=== PATIENT | female | born 1950 | race Caucasian/White ===

== ENCOUNTER 2018-04-03 05:38 | Observation (INO) ==
[2018-04-03] MEDS ORDERED: Ondansetron 4 MG/2 ML VIAL IVP ONE (05:56)
[2018-04-03] MEDS ORDERED: Aspirin 325 MG TABLET PO ONE (05:56)
--- NOTE | 2018-04-03 06:02 | Emergency Department Note ---
START Narrative - START START: 67-year-old female nonsmoking diabetic who arrives via private vehicle driven by her grandmother with complaint of palpitations. Patient states that she was lying in bed @04:45 when she had begun noticing these just prior to arrival. She does mention that she has had palpitations in the past, but these are more severe, and have lasted longer. She mentioned she has seen Dr. Pena for these in the past but has not seen him lately. Palpitations are accompanied with nausea. She does mention she passed a exercise stress test recently recommended by Dr. Pena. Additionally she does mention that she was seen at [facility] 2 weeks ago for a neck biopsy, but has not heard the results. She denies any history of PE, DVT, [place]. She denies any near syncopal symptoms, syncope, chest pain, shortness of breath, cough, thyroid disease, or recent illness. This is a start note. I have reviewed nursing notes and vital signs. I have ordered initial workup. Due to shift change care of this patient be transferred over to day shift provider William Palacios CNP and daytime attending. Please see their further documentation for additional details, and further evaluation and disposition of this patient.
[2018-04-03 06:17] LABS: Basophils # 0.1 K/mcL (0.0-0.2); Basophils % 0.7 %; Eosinophils # 0.2 K/mcL (0.0-0.6); Eosinophils % 2.5 %; Hematocrit 43.7 % (35.3-44.9); Hemoglobin 14.6 g/dL (11.5-15.4); Immature Granulocytes % 0.7 % (0-4); Lymphocytes # 2.2 K/mcL (0.6-4.6); Lymphocytes % 28.5 %; Mean Corpuscular HGB Conc 33.4 g/dL (31.6-35.5); Mean Corpuscular Hemoglobin 30.3 pg (28.0-33.3); Mean Corpuscular Volume 90.7 fL (83.0-100.0); Mean Platelet Volume 11.9 fL (9.4-12.4); Monocytes # 0.8 K/mcL (0.0-1.3); Monocytes % 10.7 %; Neutrophils # 4.4 K/mcL (1.6-8.9); Platelet Count 188 K/mcL (140-400); Red Blood Count 4.82 M/mcL (3.82-4.97); Segmented Neutrophils % 56.9 %
[2018-04-03 06:26] LABS: Prothrombin Time 11.3 Seconds (9.4-12.1)
[2018-04-03 06:29] LABS: Activated Partial Thrombo Time 33.1 Seconds (26.0-36.0)
[2018-04-03 06:37] LABS: BUN/Creatinine Ratio 22 (6-26); Blood Urea Nitrogen 18 mg/dL (8-23); Calcium 9.5 mg/dL (8.6-10.3); Carbon Dioxide 24 mEq/L (23-29); Chloride 105 mEq/L (98-107); Glucose 168 mg/dL (70-105); Osmolality,Calculated 290 (280-300); Sodium 137 mEq/L (136-145); eGFR For Non-African Americans > 60 (> 60)
[2018-04-03 06:38] LABS: Troponin I < 0.03 ng/mL (< 0.04)
[2018-04-03 06:52] LABS: Thyroid Stimulating Hormone 3.767 mcIU/mL (0.340-5.600)
--- NOTE | 2018-04-03 07:07 | Emergency Department Note ---
Disposition Clinical Impression: Tachycardia Atrial flutter Qualifiers: Atrial flutter type: unspecified Qualified Code(s): I48.92 - Unspecified atrial flutter Disposition: Admitted As Inpatient Condition: Fair Arrhythmia/Palpitations HPI - General Chief Complaint: ED Arrhythmia/Palpitations Stated Complaint: Palpitations, SOB Time Seen by Provider: 04/03/18 05:49 Source: patient Mode of arrival: ambulatory Limitations: no limitations Nursing Notes Reviewed: Yes Vital Signs Reviewed: Yes - History of Present Illness HPI Narrative: 67 year old female with history of hypertension and diabetes presents with palpitation. Pt stated she woke up this morning around 4:30 am with palpitation. pt stated she felt uncomfortable feelings in chest. No pain. No shortness of breath. No sweating. No nausea and vomiting. Pt felt her pulse which was around 140s. She decided to come to ER for further evaluation. Pt had throat biopsy in [facility] two weeks ago. Per pt, it was negative biopsy. Pt had stress test before the biopsy. But she didn't get any results yet. Pt Subjective Complaint: rapid heart beat, palpitations Onset (ago): hour(s) (2) Duration: constant Severity: moderate Associated symptoms: Denies: chest pain, shortness of breath, near-syncope, nausea, vomiting, anxiety, diaphoresis - Related Data Home Medications Medication Instructions Recorded Confirmed Aspirin [Adult Aspirin] 81 mg PO DAILY 04/03/18 04/03/18 Cranberry 500 mg PO QAM 04/03/18 04/03/18 Metformin HCl [Metformin HCl] 1,000 mg PO BID 04/03/18 04/03/18 Metoprolol Tartrate [Metoprolol 50 mg PO BID 04/03/18 04/03/18 Tartrate] Allergies Allergy/AdvReac Type Severity Reaction Status Date / Time azithromycin Allergy See Verified 04/03/18 08:13 [From Zithromax Z-Jarett] Comments clarithromycin [From Biaxin] Allergy Nausea Verified 04/03/18 08:13 Penicillins Allergy See Verified 04/03/18 08:13 Comments tramadol Allergy See Verified 04/03/18 08:13 Comments Constitutional: Denies: fever, chills, weakness, weight change Eyes: Denies: eye pain, eye discharge, vision change ENT ED: Denies: ear pain, throat pain, dental pain, hearing loss, epistaxis, congestion, dysphagia Cardiovascular: Reports: palpitations. Denies: chest pain, dyspnea on exertion , edema, syncope Respiratory: Denies: cough, dyspnea, wheezes, hemoptysis, stridor Gastrointestinal: Denies: abdominal pain, nausea, vomiting, diarrhea, constipation, hematemesis, melena, hematochezia Genitourinary: Denies: dysuria, frequency, hematuria, discharge Musculoskeletal: Denies: back pain, neck pain, arthralgia, myalgia Integumentary: Denies: rash, abrasion, lesions Neurological: Denies: headache, weakness, numbness, paresthesias, confusion, abnormal gait, vertigo Psychiatric: Denies: anxiety, depression, suicidal thoughts, homicidal thoughts , auditory hallucinations, visual hallucinations Endocrine: Denies: fatigue Hematological/Lymphatic: Denies: easy bleeding, easy bruising Allergic/Immunologic: Denies: facial swelling, urticaria Past Medical History - Past Medical History Medical history: Reports: diabetes, other Psychiatric history: Reports: no psych history - Social History Smoking Status: Never smoker Smokeless Tobacco Status: No Alcohol use: Reports: none Drug use: Reports: none Physical Exam - General Limitations: no limitations General appearance: alert, in no apparent distress - Head Head exam: atraumatic, normocephalic, normal inspection - Eye Eye exam: Present: normal appearance, PERRL, EOMI - ENT ENT exam: normal exam, normal oropharynx, mucous membranes moist - Neck Neck exam: Present: normal inspection, full ROM, trachea midline - Chest Chest inspection: Present: normal inspection, symmetric chest wall rise. Absent : tenderness - Respiratory Respiratory exam: Present: normal lung sounds bilaterally. Absent: respiratory distress, wheezes - Cardiovascular Cardiovascular exam: Present: tachycardia, irregular rhythm - Abdominal Exam Abdominal exam: Present: soft, Non-Tender. Absent: tenderness, distention, guarding, rebound, rigidity - Extremities Exam Extremities exam: Present: normal inspection, full ROM, calf tenderness ( bilateral calfs tender). Absent: pedal edema - Expanded Lower Extremity Exam Neurovascular/Tendon exam: Absent: motor deficit, sensory deficit, tendon deficit - Back Exam Back exam: Present: normal inspection, full ROM. Absent: tenderness - Neurological Exam Neurological exam: Present: alert, oriented X3 - Psychiatric Psychiatric exam: Present: normal affect, normal mood - Skin Skin exam: Present: warm, dry, intact, normal color Course Vital Signs Temperature 98.0 F 04/03/18 05:42 Pulse Rate 100 04/03/18 05:42 Respiratory Rate 16 04/03/18 05:42 Blood Pressure 136/76 04/03/18 05:42 O2 Sat by Pulse Oximetry 97 04/03/18 05:42 Temperature 98.0 F 04/03/18 08:18 Pulse Rate 124 04/03/18 08:18 Respiratory Rate 20 04/03/18 09:30 Blood Pressure 146/83 04/03/18 09:30 O2 Sat by Pulse Oximetry 98 04/03/18 08:18 Oxygen Delivery Oxygen Delivery Room Air Arrhythmia/Palpitations - MDM Narrative Medical decision making narrative: 67 year old female with history of hypertension and diabetes presents with sudden onset palpitation. Pt had pulse around 140 at home. no chest pain. mild shortness of breath. Pt had unremarkable stress test two weeks ago for medical clearance for throat biopathy. Pt was on Metoprolol 50 mg twice a day. EKG in ER indicated a-flutter with HR 102, and 115 (twice). No ST-T change. Talked with Dr. Grajeda. Suggest to start Cardizem drip if no response to oral Metoprolol. 20 minutes after taking Metoprolol, pt's heart rate is between 100s to 140s. Negative troponin and d-dimer. Cardizem drip started. 10:20 am, 15 minutes after cardizem drip 5mg/hr, pt has no response to medication yet. heart rate was between 96 to 150s. Cardizem tiltered up. Talked with Hospitalist : Dr. Trivedi. pt will be admitted to Step down unit. - Differential Diagnosis Differential Diagnosis: Likely: palpitations, sinus tachycardia, artial arrhythmia - Lab Data Lab results reviewed: Yes I reviewed the patient's lab results. Result diagrams: 04/03/18 06:02 04/03/18 06:02 Lab Results 04/03/18 04/03/18 04/03/18 Range/Units 06:02 06:02 06:02 WBC 7.6 (4.3-11.1) K/mcL RBC 4.82 (3.82-4.97) M/mcL Hgb 14.6 (11.5-15.4) g/dL Hct 43.7 (35.3-44.9) % MCV 90.7 (83.0-100.0) fL MCH 30.3 (28.0-33.3) pg MCHC 33.4 (31.6-35.5) g/dL RDW 13.0 (11.5-14.5) % Plt Count 188 (140-400) K/mcL MPV 11.9 (9.4-12.4) fL Immature Gran % 0.7 (0-4) % Seg Neutrophils % 56.9 % Lymphocytes % 28.5 % Monocytes % 10.7 % Eosinophils % 2.5 % Basophils % 0.7 % Neutrophils # 4.4 (1.6-8.9) K/mcL Lymphocytes # 2.2 (0.6-4.6) K/mcL Monocytes # 0.8 (0.0-1.3) K/mcL Eosinophils # 0.2 (0.0-0.6) K/mcL Basophils # 0.1 (0.0-0.2) K/mcL PT 11.3 (9.4-12.1) Seconds INR 1.0 APTT 33.1 (26.0-36.0) Seconds D-Dimer 450 (0-500) ng/mLFEU Sodium 137 (136-145) mEq/L Potassium 4.0 (3.5-5.1) mEq/L Chloride 105 (98-107) mEq/L Carbon Dioxide 24 (23-29) mEq/L BUN 18 (8-23) mg/dL Creatinine 0.83 (0.60-1.20) mg/dL Est GFR ( Amer) > 60 (> 60) Est GFR (Non-Af Amer) > 60 (> 60) BUN/Creatinine Ratio 22 (6-26) Glucose 168 H (70-105) mg/dL Calculated Osmolality 290 (280-300) Calcium 9.5 (8.6-10.3) mg/dL Troponin I < 0.03 (< 0.04) ng/mL TSH 3.767 (0.340-5.600) mcIU/mL - Radiology Data Radiology results reviewed: Yes I reviewed the patient's radiology results. Attestation Statement - Attestation Attestation: This documentation is done with the assistance of Dragon dictation. Despite efforts made to ensure accuracy, there may be inaccuracies in household appliances service technician or spelling and typographical errors. I have personally performed a face to face evaluation on this patient. I have reviewed and agree with the care plan. History and Exam by me shows: Patient was seen and evaluated prior to my arrival by the physician's assistant program manager myself. I agree with her evaluation and management plan I supervised care the patient' s stay. She came in today due to palpitations and skipped heartbeats. She says she has had this before it sounds like it has been SVT in the past. She had a recent stress test. She is on a beta delicia twice a day but does not know the dose. She did not have discussed this morning. Staying in room speak with her heart rate is 9250. Waiting on labs come back repeating EKG and will speak with cardiology. She is in agreement with plan. Chest X-Ray 04/03/18 05:56 IMPRESSION: No acute findings. D/ / Robb Farrar / Robb Farrar Interpreting Provider: Robb Farrar [id number] hrs.: Patient is stable at this time just went ahead and repeated an EKG she has a tachycardic rhythm again with some skipped beats but better than before. We will speak with cardiology. She missed her morning dose of beta delicia which is metoprolol 50 mg twice a day we will give her first dose here and then follow cardiology's recommendations. Patient's in agreement with plan.
[2018-04-03] MEDS ORDERED: Naloxone 0.4 MG/ML INJ IVP PRN (10:42)
--- NOTE | 2018-04-03 10:50 | Internal Med History&Physical ---
Date of Encounter: 04/03/18 Time of Encounter: 10:47 Internal Medicine - H&P: HPI Chief complaint: Palpitations Admitted From: Home Plans for Post Hospital Care: Home History of present illness: Ms. Beltran is a 67 year old female with a past medical history of COPD nonsmoker and questionable obstructive sleep apnea as well as type 2 diabetes who presented with palpitations . Patient denies any chest pain and states that palpitations are first felt early this morning as she got up at the side of the bed. She denies feeling any dizziness or no chest pain. She did not have any nausea or vomiting associated with this. She has been dealing with palpitations for a long time over many years and her financial compliance examiner has put her on beta blockers. She takes 50 mg of by mouth twice a day metoprolol which does control her palpitation symptoms. The patient checked her pulse prior to coming to the hospital and said she was in the 130s to 140s. She recently had a throat biopsy of her tonsils at [facility] about couple of weeks ago. In the ER the patient was found to be in atrial fibrillation with rapid ventricular rate in the heart rate in the 130s. An EKG did confirm atrial fibrillation. She was given her 50 mg of metoprolol which is her home dose in addition to it Cardizem drip was started with titration and a call was made to the hospitalist for admitting the patient. Upon questioning her the patient does state that she is a nonsmoker but has been diagnosed by's pulmonary medicine at [facility] with the COPD based on lab pulmonary function tests and I have not yet confirmed this. She also has a diagnosis of sleep apnea -was diagnosed with sleep studies -but is very claustrophobic and does not wear her BiPAP. Past Med Surg Social Fam HX - Past Medical History Medical history: diabetes, other Additional medical history: palpitations Psychiatric history: no psych history - Past Surgical History Additional surgical history: bilat knee scopes - Social History Smoking Status: Never smoker Smokeless Tobacco Status: No Alcohol use: none Drug use: none - Additional Family History Additional family history: Denies any family history in her immediate family members of sudden adverse cardiovascular event Internal Medicine - H&P: Meds Aspirin [Adult Aspirin] 81 mg PO DAILY 04/03/18 [History] Cranberry 500 mg PO QAM 04/03/18 [History] Metformin HCl [Metformin HCl] 1,000 mg PO BID 04/03/18 [History] Metoprolol Tartrate [Metoprolol Tartrate] 50 mg PO BID 04/03/18 [History] 3 Allergy/AdvReac Type Severity Reaction Status Date / Time azithromycin Allergy See Verified 04/03/18 08:13 [From Zithromax Z-Jarett] Comments clarithromycin [From Biaxin] Allergy Nausea Verified 04/03/18 08:13 Penicillins Allergy See Verified 04/03/18 08:13 Comments tramadol Allergy See Verified 04/03/18 08:13 Comments All Systems PM: A 10-system review of systems was performed and is negative for pertinent findings except as documented above in the HPI. - Constitutional Vitals: Temp Pulse Resp BP Pulse Ox 98.0 F 124 20 146/83 98 04/03/18 08:18 04/03/18 08:18 04/03/18 09:30 04/03/18 09:30 04/03/18 08:18 Exam: GENERAL: Alert, no distress, cooperative EYES: PERRLA, EOMI EARS: External ears normal, canals clear OROPHARYNX: Lips, mucosa, and tongue normal. Teeth and gums normal. Oropharynx normal. NECK: No jugulovenous distention, No carotid bruits, Carotid pulse normal contour, Supple LUNGS: Lungs clear to auscultation, Good diaphragmatic excursion CARDIAC: Irregular heart rhythm, no murmurs rubs or gallops, tachycardia present. ABDOMEN: Abdomen soft, non-tender, BS normal, No masses or organomegaly EXTREMITIES: Extremities normal, no deformities, edema, clubbing or skin discoloration. Good capillary refill., No ulcers NEURO: Gait normal. Reflexes normal and symmetric. Sensation grossly intact, Cranial nerves II-XII intact PULSES: 2+ radial, 2+ carotid-irregular Rest of the exam is non contributory Internal Med - H&P Results - Labs CBC & Chem 7: 04/03/18 06:02 04/03/18 06:02 - Assessment and plan (1) Atrial fibrillation with rapid ventricular response Current Visit: Yes Status: Acute Assessment and plan: Patient has many years of palpitation history and today has evidence of atrial fibrillation on her EKG as well as telemetry monitoring. She was given her beta delicia which usually takes at 50 minutes twice a day. In addition she was also started on IV Cardizem drip which is to be titrated for heart rate response. Her chads risk score is at least 3 and she will need to be on anticoagulation which will be decided well on the floor. Cardiology has already been spoken to by the ER and I will be placing an official consult in the EMR. Check 2-D echo and follow cultures recommendations. For now we will manage her on the Cardizem drip which should be titrated depending on her heart rate control. She is also receiving 325 of aspirin I will be starting 81 mg of aspirin and starting tomorrow. Check TSH (2) Diabetes mellitus type 2 in obese Current Visit: Yes Status: Acute Assessment and plan: Sliding-scale insulin and Accu-Cheks before meals at bedtime. Hold oral hypoglycemics (3) Palpitations Current Visit: Yes Status: Acute Assessment and plan: Chronic issue. See atrial fibrillation and plan of care. - Time Spent With Patient Total time spent is greater than 50% in coordination of care (as documented) at patient's floor/unit and/or counseling patient: Greater than 35 minutes
[2018-04-03 11:51] LABS: Troponin I < 0.03 ng/mL (< 0.04)
[2018-04-03] MEDS ORDERED: 0.9 % Sodium Chloride 250 ML ONE (12:04)
[2018-04-03 12:07] LABS: Thyroid Stimulating Hormone 1.764 mcIU/mL (0.340-5.600)
[2018-04-03] MEDS: Aspirin Enteric Coated 81 MG Tablet PO SCH (12:26)
--- NOTE | 2018-04-03 12:59 | Cardiology Consult Note ---
<Christian Gaxiola R - Last Filed: 04/03/18 13:26> Date of Encounter: 04/03/18 Time of Encounter: 12:56 Assessment and Plan (1) Atrial fibrillation Current Visit: Yes Status: Acute Hx of atrial tachycardia and PACs. Woke this AM with palpitations, presented to ED and found to be in A-Fib RVR, new diagnosis. On Lopressor 50mg BID at home. Started on cardizem gtt, currently 7.5mg/hr with HR 70s-90s at bedside. Denies dyspnea or chest pain. Troponin negative. K and TSH WNL, check Mag. TTE 01/2018 EF preserved, moderate LVDD, mild valvular dysfunction. Per pt, had a stress test at [facility] last week--request records. [id number] 4 (Age, HTN, DM, Female). Would ideally recommend anticoagulation. However, had tonsil biopsy recently and was planned for needle lymph node biopsy at [facility] tomorrow--cancelled due to current admission. Anticipate we will recommend ASA only until her biopsies have been completed, then start AC after. Pt aware of increased CVA risk. Will start heparin gtt for inpt CVA prevention. Will start short acting cardizem 60mg Q8hrs and attempt to wean off gtt. If rate controlled in AM will transition to long acting cardizem. Has untreated BELEN--does not tolerate CPAP due to claustrophobia. Qualifiers: Atrial fibrillation type: unspecified Qualified Code(s): I48.91 - Unspecified atrial fibrillation Discussion w patient/family: The assessment and plan as outlined above was discussed with the patient and/or family members who expressed understanding and agreement. All questions were answered. Thank you for involving us in the care of your patient. Please call with any questions. I will discuss all the above with Dr. Grajeda and make changes as necessary. History of Present Illness Consult date: 04/03/18 Consult reason: A-Fib Chief complaint: palpitations History of present illness: Ms. Beltran is a 67 year old female with PMH of HTN, BELEN (unable to tolerate CPAP), PACs and atrial tachycardia. She presented to ED this AM for onset of palpitations. In ED, found to be in A-Fib RVR, HR in the 130s. She is on home Lopressor 50mg BID and started on a cardizem gtt. Cardiology consulted for further recs. HR at bedside 70s-90s on cardizem gtt at 7.5mg/hr. She was diagnosed with Strep throat in 10/2017. She recently had a throat biopsy of her tonsils at [facility] a couple of weeks ago due to a suspicious lesion. She tells me preliminary results are negative, but was planned to have a needle lymph node biopsy tomorrow at [facility], now cancelled due to this admission. She also reports having a stress test at the [facility] last week. Prior CV testing: TTE 02/02/18: LVEF 60-65%. Moderate left ventricular diastolic dysfunction. Normal right ventricular structure and function. Mild mitral regurgitation. Mild tricuspid regurgitation. Mild pulmonic regurgitation. No pulmonary hypertension by TR gradient. Exercise nuclear stress test 07/2014: Negative for ischemia or prior infarct. Holter monitor 11/21/2015: Occasional PACs averaging 16 per hour. 9 episodes of SVT, longest 15 beats. Morphology mostly suggestive of atrial tachycardia. Past Med Surg Social Fam HX - Past Medical History Medical history: COPD, diabetes, hypertension, other Additional medical history: palpitations. hard of hearing. Psychiatric history: no psych history - Past Surgical History Surgical History: cholecystectomy, hysterectomy Additional surgical history: bilat knee scopes. tonsil biopsy 2 weeks ago today - preliminary negative. - Social History Smoking Status: Never smoker Smokeless Tobacco Status: No Alcohol use: none Drug use: none - Family History Mother Hx Family Endocrine Disorder: Yes (mom, dad, brother, 3 sisters - diabetes.) Medications and Allergies Aspirin [Adult Aspirin] 81 mg PO DAILY 04/03/18 [History] Cranberry 500 mg PO QAM 04/03/18 [History] Metformin HCl [Metformin HCl] 1,000 mg PO BID 04/03/18 [History] Metoprolol Tartrate [Metoprolol Tartrate] 50 mg PO BID 04/03/18 [History] 3 Allergy/AdvReac Type Severity Reaction Status Date / Time azithromycin Allergy See Verified 04/03/18 08:13 [From Zithromax Z-Jarett] Comments clarithromycin [From Biaxin] Allergy Nausea Verified 04/03/18 08:13 Penicillins Allergy See Verified 04/03/18 08:13 Comments tramadol Allergy See Verified 04/03/18 08:13 Comments All Systems Review: The remainder of the systems were reviewed and are negative - Cardiovascular Cardiovascular: as per HPI, palpitations, rapid heart rate Physical Examination Vital Signs, Last 4 Hours Temp Pulse Resp BP Pulse Ox 04/03/18 12:30 81 151/95 04/03/18 12:10 90 94 04/03/18 12:00 76 133/82 04/03/18 11:30 98.7 F 87 18 140/89 95 04/03/18 11:1 5 88 130/72 04/03/18 10:55 20 146/83 04/03/18 10:48 93 20 129/80 97 General: Conversant, No Apparent Distress HEENT: Atraumatic, Normocephaly, Mucus Membranes Moist Neck: No JVD, Normal carotid pulses Cardiac: Other (irregularly irregular) Lungs: Normal Breath Sounds, No Wheeze, Rales, Rhonchi Neuro: Alert and responsive, No focal deficits noted Abdomen: Soft, Non-Tender Skin: No rashes noted on visualized skin Musculoskeletal: No Chest Wall Tenderness Extremities: No Clubbing, No Cyanosis, No Edema, Normal Pulses Results 04/03/18 06:02 04/03/18 06:02 Lab Results 04/03/18 11:04 Troponin I < 0.03 TSH 1.764 Short CBC 04/03/18 Range/Units 06:02 WBC 7.6 (4.3-11.1) K/mcL Hgb 14.6 (11.5-15.4) g/dL Hct 43.7 (35.3-44.9) % Plt Count 188 (140-400) K/mcL Neutrophils # 4.4 (1.6-8.9) K/mcL BMP 04/03/18 Range/Units 06:02 Sodium 137 (136-145) mEq/L Potassium 4.0 (3.5-5.1) mEq/L Chloride 105 (98-107) mEq/L Carbon Dioxide 24 (23-29) mEq/L BUN 18 (8-23) mg/dL Creatinine 0.83 (0.60-1.20) mg/dL Glucose 168 H (70-105) mg/dL Calcium 9.5 (8.6-10.3) mg/dL Cardiac Enzymes 04/03/18 04/03/18 Range/Units 11:04 06:02 Troponin I < 0.03 < 0.03 (< 0.04) ng/mL Impressions Chest X-Ray 04/03/18 05:56 IMPRESSION: No acute findings. D/ / Robb Farrar / Robb Farrar Interpreting Provider: Robb Farrar Active Medications Aspirin (Aspirin Ec) 81 mg PO DAILY ALAYNA Stop: 10/03/18 10:46 Last Admin: 04/03/18 12:26 Dose: Not Given Diltiazem HCl 50 mg/ Sodium (Chloride) 50 mls @ 5 mls/hr IVC .Q10H ALAYNA; 5 MG/HR PRN Reason: Protocol Stop: 10/03/18 09:01 Last Infusion: 04/03/18 10:17 Dose: 7.5 mg/hr, 7.5 mls/hr Metoprolol Tartrate (Lopressor) 50 mg PO BID ALAYNA Stop: 10/03/18 21:01 Naloxone HCl (Narcan) 0.4 mg IVP Q2MIN PRN PRN Reason: SEE COMMENTS Stop: 10/03/18 10:43 - Imaging and Cardiology Echo: report reviewed - EKG Interpretation EKG results cardiology: personally reviewed (A-Fib RVR) Consult Discharge Plan - Plan Referrals: Karla Mercer MD [Primary Care Provider] - (Office will call patient at home with follow up appointment per Dr. Mercer's office) <Dmitri Grajeda - Last Filed: 04/03/18 14:04> Date of Encounter: 04/03/18 - Attending Attestation I have personally performed a face to face evaluation on this patient. I have reviewed and agree with the care plan. History and Exam by me shows: CC: Palpitations HPI: Pt presents with complaint of palpitations awakening her from sleep, no associated chest pain, pressure or shortness of breath. Palpitations lasted over an hour, for which she sought care in the ER. She was found to be in A fib with uncontrolled rate response, started on IV diltiazem with control of heart rate response to A fib. She has recently undergone stress imaging as part of risk stratification for surgical biopsy of lesion on her tonsils. She denies chest pain, pressure or shortness of breath. PMH: Reviewed ROS: Reviewed PE: Pt seen and examined, agree with findings as documented. IMP/Plan 1; Afib with RVR, now rate controlled on IV diltiazem, change to short acting @ 60 mg q 8, then long acting in AM if ventricular rate response controlled. She is a candidate for systemic anticoagulation, however anticipating lymph node biopsy tomorrow, will hold until surgical procedures complete. 2. Throat lesion, reportedly negative biopsy, however planned needle biopsy lymph node at [facility] tomorrow, continue on ASA 81 mg 1 d only. 3. Benign PVCs, symptomatic, improved on current dose of Metoprolol, continue same 4. COPD : controlled on current meds 5. BEH: Adequate control on current meds, continue to follow on PO diltiazem. 6. Type 11 Adult onset DM, following with primary service IF able to control ventricular rate response, she is a candidate for discharge in AM to make scheduled appt for lymph node biopsy at [facility] in AM Assessment and Plan Discussion w patient/family: The assessment and plan as outlined above was discussed with the patient and/or family members who expressed understanding and agreement. All questions were answered. Thank you for involving us in the care of your patient. Please call with any questions. History of Present Illness History of present illness: Ms. Beltran is a 67 year old female All Systems Review: The remainder of the systems were reviewed and are negative Physical Examination Vital Signs, Last 4 Hours Temp Pulse Resp BP Pulse Ox 04/03/18 13:40 87 136/87 94 04/03/18 13:14 93 132/95 04/03/18 12:30 81 151/95 04/03/18 12:10 90 94 04/03/18 12:00 76 133/82 04/03/18 11:30 98.7 F 87 18 140/89 95 04/03/18 11:15 88 130/72 04/03/18 10:55 20 146/83 04/03/18 10:48 93 20 129/80 97 Results 04/03/18 06:02 04/03/18 06:02 Lab Results 04/03/18 11:04 Troponin I < 0.03 TSH 1.764
[2018-04-03] MEDS ORDERED: *HR* Heparin 5,000 UNIT/ML VIAL IVP PRN ×2 (13:19)
[2018-04-03] MEDS ORDERED: *HR* Heparin 5,000 UNIT/ML VIAL IVP ONE (13:19)
[2018-04-03] MEDS ORDERED: Heparin 25,000 UNIT/500 ML D5W 25,000 UNIT/500 ML BAG IVC SCH (13:30)
--- NOTE | 2018-04-03 16:12 | Electrocardiograph Report ---
[place] [id number] Test Date: 2018-04-03 Pat Name: Sania Beltran Department: Room: 2N15 Gender: F Ap Processor: : 1950 Requested By: Lance Peace Order Number: [id number] Reading MD: Fallon Xavier Measurements Intervals [place] Rate: 115 P: MO: QRS: -18 QRSD: 86 T: 18 QT: 339 QTc: 469 Interpretive Statements ATRIAL FIBRILLATION BORDERLINE LEFT AXIS DEVIATION Electronically Signed On 04-03-2018 16:10:35 EDT by Fallon Xavier
[2018-04-03] MEDS: *HR* Heparin 5,000 UNIT/ML VIAL SQ SCH (17:52)
[2018-04-04 04:58] LABS: Basophils % 0.5 %; Eosinophils # 0.2 K/mcL (0.0-0.6); Eosinophils % 2.3 %; Hematocrit 40.2 % (35.3-44.9); Hemoglobin 13.4 g/dL (11.5-15.4); Immature Granulocytes % 0.6 % (0-4); Lymphocytes # 2.3 K/mcL (0.6-4.6); Lymphocytes % 29.8 %; Mean Corpuscular HGB Conc 33.3 g/dL (31.6-35.5); Mean Corpuscular Hemoglobin 30.1 pg (28.0-33.3); Mean Corpuscular Volume 90.3 fL (83.0-100.0); Monocytes # 0.8 K/mcL (0.0-1.3); Monocytes % 9.8 %; Neutrophils # 4.4 K/mcL (1.6-8.9); Platelet Count 185 K/mcL (140-400); Red Blood Count 4.45 M/mcL (3.82-4.97); Red Cell Distribution Width 13.2 % (11.5-14.5)
[2018-04-04 05:18] LABS: BUN/Creatinine Ratio 20 (6-26); Blood Urea Nitrogen 16 mg/dL (8-23); Carbon Dioxide 23 mEq/L (23-29); Chloride 107 mEq/L (98-107); Glucose 178 mg/dL (70-105); Osmolality,Calculated 290 (280-300); Potassium 3.9 mEq/L (3.5-5.1); Sodium 137 mEq/L (136-145); eGFR For Non-African Americans > 60 (> 60)
[2018-04-04] MEDS: *HR* Heparin 5,000 UNIT/ML VIAL SQ SCH (06:34)
[2018-04-04] MEDS: Aspirin Enteric Coated 81 MG Tablet PO SCH (07:55)
--- NOTE | 2018-04-04 10:56 | Cardiology Progress Note ---
Date of Encounter: 04/04/18 Time of Encounter: 10:54 Assessment and Plan (1) Atrial fibrillation Current Visit: Yes Status: Acute Hx of atrial tachycardia and PACs. Presented yesterday in A-Fib RVR, new diagnosis. On Lopressor 50mg BID at home. Started on cardizem gtt on admission, converted to SR. Currently on Cardizem 30mg Q6hrs. Will transition to long acting cardizem cd 120mg daily. Denies dyspnea or chest pain. Troponin negative. K, Mag and TSH WNL. TTE 01/2018 EF preserved, moderate LVDD, mild valvular dysfunction. Per pt, had a stress test at [facility] last week--requested records. [id number] 4 (Age, HTN, DM, Female). Would ideally recommend anticoagulation. However, had tonsil biopsy recently and was planned for needle lymph node biopsy at [facility] today--cancelled due to current admission. Recommend ASA only until her biopsies have been completed, then start AC after. Pt aware of increased CVA risk. Continue Lopressor 50mg BID and Cardizem CD 120mg daily. Continue ASA. Cardiology signing off. Reconsult PRN. Will coordinate outpt follow-up in 2-[address] Lefty Winchester for new A-Fib diagnosis. Qualifiers: Atrial fibrillation type: unspecified Qualified Code(s): I48.91 - Unspecified atrial fibrillation Discussion w patient/family: The assessment and plan as outlined above was discussed with the patient and/or family members who expressed understanding and agreement. All questions were answered. Thank you for involving us in the care of your patient. Please call with any questions. I will discuss all the above with Dr. Grajeda and make changes as necessary. Subjective Principal diagnosis: PAF Interval history: Denies acute complaints currently. SR at bedside. 12 hr tele AVG HR 61, now SR. Objective Vital Signs, Last 4 Hours Temp Pulse Resp BP Pulse Ox 04/04/18 08:00 65 04/04/18 07:35 98.4 F 59 18 137/77 97 Vital Signs Temp Pulse Resp BP Pulse Ox 04/04/18 08:00 65 04/04/18 07:35 98.4 F 59 18 137/77 97 04/04/18 03:54 98.1 F 65 16 131/69 95 04/04/18 02:00 58 12 94 04/04/18 00:14 98.4 F 60 17 100/45 95 04/04/18 00:00 96 04/03/18 22:00 64 14 129/65 100 04/03/18 20:36 61 16 136/71 98 04/03/18 19:11 98.8 F 56 18 134/68 98 04/03/18 17:50 59 04/03/18 16:30 55 125/70 04/03/18 16:00 58 130/79 04/03/18 15:45 57 04/03/18 15:35 98.2 F 84 18 96 04/03/18 15:30 54 126/64 04/03/18 15:00 68 123/61 04/03/18 14:30 80 117/82 04/03/18 14:00 79 138/67 04/03/18 13:40 87 136/87 94 04/03/18 13:14 93 132/95 04/03/18 12:30 81 151/95 04/03/18 12:10 90 94 04/03/18 12:00 76 133/82 04/03/18 11:30 98.7 F 87 18 140/89 95 04/03/18 11:15 88 130/72 Intake and Output 04/03/18 04/04/18 04/04/18 23:59 07:59 15:59 Intake Total 860 / 860 250 / 250 360 / 360 Balance 860 / 860 250 / 250 360 / 360 Intake: Oral 860 / 860 250 / 250 360 / 360 Other: Meal Dinner Breakfast Percent of Meal Consumed 100% 100% # Voids 1 2 Weight 102.5 kg Blood Glucose* 194 186 Patient Weight 04/04/18 23:59 Weight 102.5 kg General: Conversant, No Apparent Distress HEENT: Atraumatic, Normocephaly, Mucus Membranes Moist Neck: No JVD, Normal carotid pulses Cardiac: Reg Rate and Rhythm, Normal S1 and S2, No Murmur Lungs: Normal Breath Sounds, No Wheeze, Rales, Rhonchi Neuro: Alert and responsive, No focal deficits noted Abdomen: Soft, Non-Tender Skin: No rashes noted on visualized skin Musculoskeletal: No Chest Wall Tenderness Extremities: No Clubbing, No Cyanosis, No Edema, Normal Pulses Results 04/04/18 04:16 04/04/18 04:16 Lab Results 04/03/18 04/03/18 04/03/18 11:04 17:32 22:48 WBC Hgb Hct Plt Count Sodium Potassium Chloride Carbon Dioxide BUN Creatinine Glucose Calcium Magnesium Troponin I < 0.03 < 0.03 < 0.03 TSH 1.764 04/04/18 04/04/18 04/04/18 04:16 04:16 04:16 WBC 7.7 Hgb 13.4 Hct 40.2 Plt Count 185 Sodium 137 Potassium 3.9 Chloride 107 Carbon Dioxide 23 BUN 16 Creatinine 0.80 Glucose 178 H Calcium 9.0 Magnesium 2.0 Troponin I TSH Short CBC 04/04/18 Range/Units 04:16 WBC 7.7 (4.3-11.1) K/mcL Hgb 13.4 (11.5-15.4) g/dL Hct 40.2 (35.3-44.9) % Plt Count 185 (140-400) K/mcL Neutrophils # 4.4 (1.6-8.9) K/mcL BMP 04/04/18 Range/Units 04:16 Sodium 137 (136-145) mEq/L Potassium 3.9 (3.5-5.1) mEq/L Chloride 107 (98-107) mEq/L Carbon Dioxide 23 (23-29) mEq/L BUN 16 (8-23) mg/dL Creatinine 0.80 (0.60-1.20) mg/dL Glucose 178 H (70-105) mg/dL Calcium 9.0 (8.6-10.3) mg/dL Cardiac Enzymes 04/03/18 04/03/18 04/03/18 Range/Units 22:48 17:32 11:04 Troponin I < 0.03 < 0.03 < 0.03 (< 0.04) ng/mL Active Medications Aspirin (Aspirin Ec) 81 mg PO DAILY [facility] Stop: 10/03/18 10:46 Last Admin: 04/04/18 07:55 Dose: 81 mg Diltiazem HCl (Cardizem Cd) 120 mg PO DAILY [facility] Stop: 10/05/18 12:01 Heparin Sodium (Porcine) (Heparin) 7,200 unit 70 unit/kg (7200 unit) IVP Q6HR PRN PRN Reason: SEE COMMENTS Stop: 10/03/18 13:20 Heparin Sodium (Porcine) (Heparin) 3,600 unit 35 unit/kg (3600 unit) IVP Q6H PRN PRN Reason: SEE COMMENTS Stop: 10/03/18 13:20 Heparin Sodium (Porcine) (Heparin) 5,000 unit SQ Q12HCO [facility] Stop: 10/03/18 18:01 Last Admin: 04/04/18 06:34 Dose: 5,000 unit Heparin Sodium/Dextrose (Heparin 25,000 Unit/500 Ml D5w) 25,000 unit in 500 mls @ 28.756 mls/hr IVC .[id number] ALAYNA; 14 UNIT/KG/HR PRN Reason: Protocol Stop: 10/03/18 13:31 Last Admin: 04/03/18 16:39 Dose: Not Given Metoprolol Tartrate (Lopressor) 50 mg PO BID [facility] Stop: 10/03/18 21:01 Last Admin: 04/04/18 07:55 Dose: 50 mg Naloxone HCl (Narcan) 0.4 mg IVP Q2MIN PRN PRN Reason: SEE COMMENTS Stop: 10/03/18 10:43 - Imaging and Cardiology Echo: report reviewed - EKG Interpretation EKG results cardiology: other (12 hr tele AVG HR 61, now SR.) Consult Discharge Plan - Plan Referrals: Karla Mercer MD [Primary Care Provider] - (Office will call patient at home with follow up appointment per Dr. Mercer's office)
[2018-04-04 11:39] VITALS: BP 137/69
[2018-04-04] MEDS ORDERED: Diltiazem CD (24hr) 120 MG CAPSULE PO SCH (12:30)
--- NOTE | 2018-04-04 13:24 | Discharge Summary ---
- NOTES TO OUTPATIENT PROVIDER Notes to Outpatient Provider: Patient to discontinue Eliquis 24 hours prior to procedure and to resume Eliquis 24 hours after procedure Orders not resulted at time of discharge: Pending orders 04/04/18 09:02 EKG [ECG 12 lead ECG] [ECG] Routine Date of Encounter: 04/04/18 Time of Encounter: 11:00 - Discharge Diagnosis (1) Atrial fibrillation with rapid ventricular response Priority: Primary Status: Acute (2) Diabetes mellitus type 2 in obese Priority: Secondary Status: Acute (3) Palpitations Priority: Primary Status: Acute Hospital course: Patient is a 67-year-old female with past medical history significant for COPD and diabetes who presents the ER on 04/03/18 due to palpitations and shortness of breath. In the ER, patient was found to have a heart rate in the 130s to 140s and found to be in atrial fibrillation with RVR. She was admitted to medical surgical floor for further management. During patients hospital stay patients rate was controlled with IV Cardizem and was converted to oral Cardizem per cardiology recommendations. Patient will be discharged to start oral anticoagulation with Eliquis in addition to continuing oral Cardizem and metoprolol tartrate. Patient follow- up with cardiology as an outpatient. - Time Spent with Patient Total time spent providing and/or coordinating discharge services: - Discharge Medications Prescriptions: Apixaban [Eliquis] 5 mg PO BID 30 Days #60 tablet Apixaban [Eliquis] 5 mg PO BID #60 tablet Diltiazem CD (24hr) [Cardizem CD] 120 mg PO DAILY #30 cap.er.24h Home Medications: Aspirin [Adult Aspirin] 81 mg PO DAILY 04/03/18 [History] Cranberry 500 mg PO QAM 04/03/18 [History] Metformin HCl 1,000 mg PO BID 04/03/18 [History] Metoprolol Tartrate 50 mg PO BID 04/03/18 [History] Apixaban [Eliquis] 5 mg PO BID #60 tablet 04/04/18 [Rx] Apixaban [Eliquis] 5 mg PO BID 30 Days #60 tablet 04/04/18 [Rx] Diltiazem CD (24hr) [Cardizem CD] 120 mg PO DAILY #30 cap.er.24h 04/04/18 [Rx] Allergies/Adverse Reactions: 3 Allergy/AdvReac Type Severity Reaction Status Date / Time azithromycin Allergy See Verified 04/03/18 08:13 [From Zithromax Z-Jarett] Comments clarithromycin [From Biaxin] Allergy Nausea Verified 04/03/18 08:13 Penicillins Allergy See Verified 04/03/18 08:13 Comments tramadol Allergy See Verified 04/03/18 08:13 Comments Date of admission: 04/03/18 09:08 Primary care physician: Karla Mercer MD Consults: 04/03/18 10:44 Consult to Cardiology [CONS] Routine Comment: Consulting Provider: [facility] [place] Reason for Consult: New Afib- Already spoken to and consulted by ED Time Notified: 10:44 Call Completed: No - Constitutional Vitals: Temp Pulse Resp BP Pulse Ox 98.7 F 58 18 137/69 99 04/04/18 11:34 04/04/18 11:34 04/04/18 11:34 04/04/18 11:34 04/04/18 11:34 General appearance: Present: A&O X 3 - Respiratory Respiratory exam: Present: CTAB. Absent: accessory muscle use, rales, rhonchi, wheezes - Cardiovascular Cardiovascular exam: Present: RRR, +S1, +S2. Absent: diastolic murmur, gallop, rubs, systolic murmur - Patient Status Disposition: Home, Self-Care Condition: Fair - Discharge Instructions Instructions: Atrial Flutter (DC), Atrial Fibrillation (DC), Atrial Tachycardia (DC) Follow Up With: Nancie Frank CNP [Advanced Practice Nurse] - 04/11/18 9:30 am Grecia Ospina MD [Partnered Physician] - 05/19/18 10:00 am Christopher Pena DO [Partnered Physician] - 04/17/18 2:00 pm (This appointment is in [place])
[2018-04-04] MEDS ORDERED: *HR* Metformin 500 MG TABLET PO SCH (17:00)
--- NOTE | 2018-04-04 17:50 | Electrocardiograph Report ---
[address] [address] Test Date: 2018-04-03 Pat Name: Sania Beltran Department: 110 Room: 2N15 Gender: F Religious Education Director: : 1950 Requested By: Christian Gaxiola Order Number: [id number] Reading MD: Shruthi Winchester Measurements Intervals [place] Rate: 55 P: 22 [place]: 130 QRS: -27 QRSD: 97 T: 2 QT: 413 QTc: 401 Interpretive Statements SINUS BRADYCARDIA WITH MARKED SINUS ARRHYTHMIA BORDERLINE LEFT AXIS DEVIATION MODERATE VOLTAGE CRITERIA FOR LVH, CONSIDER NORMAL VARIANT Electronically Signed On 04-04-2018 17:48:20 EDT by Shruthi Winchester
--- NOTE | 2018-04-05 11:52 | Electrocardiograph Report ---
[place] [address] Test Date: 2018-04-04 Pat Name: Sania Beltran Department: 110 Room: 2N15 Gender: F Sedimentationist: : 1950 Requested By: Christian Gaxiola Order Number: [id number] Reading MD: Fallon Xavier Measurements Intervals [place] Rate: 59 P: 30 [place]: 139 QRS: -27 QRSD: 92 T: 0 QT: 428 QTc: 426 Interpretive Statements SINUS BRADYCARDIA WITH SINUS ARRHYTHMIA BORDERLINE LEFT AXIS DEVIATION MINIMAL VOLTAGE CRITERIA FOR LVH, CONSIDER NORMAL VARIANT Electronically Signed On 04-05-2018 11:51:17 EDT by Fallon Xavier
== END 2018-04-04 15:39 | disposition home or self-care (01) ==
LOC: EMEROOARM 05:38 → 2ANU 05:38 → SUATTDRO 09:08 → 2NNU 10:25
PROVIDERS: ADMIT Internal Medicine; ATTEND Hospitalist

== ENCOUNTER 2018-04-07 09:39 | Observation (INO) ==
--- NOTE | 2018-04-07 10:01 | Emergency Department Note ---
Disposition Clinical Impression: Visual field defect, Near syncope CVA (cerebral vascular accident) Qualifiers: CVA mechanism: unspecified Qualified Code(s): I63.9 - Cerebral infarction, unspecified Disposition: Admitted As Inpatient Condition: Fair Referrals: Karla Mercer MD [Primary Care Provider] - Forms: ED Satisfaction Letter Time of Disposition: 11:20 General Adult HPI - General Chief complaint: ED Eye Problems Stated complaint: feels funny, vision problem Time Seen by Provider: 04/07/18 09:45 Source: patient, family Mode of arrival: ambulatory Limitations: no limitations Nursing Notes Reviewed: Yes Vital Signs Reviewed: Yes - History of Present Illness HPI Narrative: 67-year-old female percent for evaluation of "feels funny, vision changes". Patient states symptom onset was around 5:00 this morning. Patient states that she was recently admitted a couple days ago for new onset A. fib and was started on Eliquis. Patient states the symptoms started upon awakening this morning. Does describe prodromal tunnel vision as well as palpitations prior to the onset of symptoms. Denies any chest pain. Denies any fevers or cough. Patient states that her vision changes describe this morning appeared to be left -sided visual field deficit. Patient is also noticing spots in her vision. Reports some dizziness and unsteadiness of her gait. Denies any nausea or vomiting. Denies any focal neurologic deficits. No numbness or tingling. Pain Scale: 0 - Related Data Home Medications Medication Instructions Recorded Confirmed Aspirin [Adult Aspirin] 81 mg PO DAILY 04/03/18 04/07/18 Cranberry 500 mg PO QAM 04/03/18 04/07/18 Metformin HCl 1,000 mg PO BID 04/03/18 04/07/18 Metoprolol Tartrate 50 mg PO BID 04/03/18 04/07/18 Previous Rx's Medication Instructions Recorded Apixaban [Eliquis] 5 mg PO BID #60 tablet 04/04/18 Diltiazem CD (24hr) [Cardizem CD] 120 mg PO DAILY #30 cap.er.24h 04/04/18 Allergies Allergy/AdvReac Type Severity Reaction Status Date / Time azithromycin Allergy See Verified 04/07/18 09:56 [From Zithromax Z-Jarett] Comments clarithromycin [From Biaxin] Allergy Nausea Verified 04/07/18 09:56 Penicillins Allergy See Verified 04/07/18 09:56 Comments tramadol Allergy See Verified 04/07/18 09:56 Comments All systems ED: reviewed and negative except as stated. Constitutional: Denies: fever Cardiovascular: Denies: chest pain Respiratory: Denies: cough, dyspnea Gastrointestinal: Denies: abdominal pain, nausea, vomiting Past Medical History - Past Medical History Source: patient Medical history: Reports: atrial fibrillation, COPD, diabetes, hypertension Surgical history: Reports: cholecystectomy, hysterectomy Psychiatric history: Reports: no psych history - Social History Smoking Status: Never smoker Smokeless Tobacco Status: No Alcohol use: Reports: none Drug use: Reports: none Physical Exam - General Limitations: no limitations General appearance: alert, in no apparent distress - Head Head exam: atraumatic, normocephalic, normal inspection - Eye Eye exam: Present: normal appearance, PERRL, EOMI - Expanded Eye Exam Eyelids: bilateral: normal inspection Pupils: Bilateral: regular, round, reactive Sclera/Conjunctival: bilateral: normal inspection - ENT ENT exam: normal exam, mucous membranes moist - Neck Neck exam: Present: normal inspection - Chest Chest inspection: Present: normal inspection, symmetric chest wall rise - Respiratory Respiratory exam: Present: normal lung sounds bilaterally. Absent: respiratory distress - Cardiovascular Cardiovascular exam: Present: regular rate, normal rhythm - Abdominal Exam Abdominal exam: Present: soft, Non-Tender - Extremities Exam Extremities exam: Present: normal inspection - Back Exam Back exam: Present: normal inspection - Neurological Exam Neurological exam: Present: alert, oriented X3, CN II-XII intact - Expanded Neurological Exam Patient oriented to: Present: person Speech: Present: fluid speech Cranial nerves: EOM function (II, III, IV, ): Normal, facial sensation (V): Normal, facial palsy (VII): Normal, spinal accessory function (XI): Normal, tongue deviation (XII): Normal Cerebellar function: finger to nose: Abnormal Left Motor strength - LUE: 5/5 Motor strength - RUE: 5/5 Motor strength - LLE: 5/5 Motor strength - RLE: 5/5 Sensory exam upper extremity: light touch: Normal Sensory exam lower extremity: light touch: Normal Coma Scale Eye Opening: Spontaneous Coma Scale Motor Response: Obeys Commands Coma Scale Verbal Response: Oriented Coma Scale Total: 15 - Skin Skin exam: Present: warm, dry, intact, normal color Course Course Narrative: Patient seen and examined. Patient states symptom onset was around 5:00 this morning. Patient is not a stroke alert given time onset. Patient does have concerning signs symptoms of stroke. Patient will get a stroke evaluation with CT. Patient is on Eliquis. Patient also get basic labs and screening cardiopulmonary evaluation. - Reevaluation(s) Reevaluation #1: Patient symptoms resolved. Time: 11:25 Reevaluation #2: Patient seen and examined. Patient's resting comfortably. Time: 12:29 Vital Signs Temperature 98.1 F 04/07/18 09:41 Pulse Rate 62 04/07/18 09:41 Respiratory Rate 15 04/07/18 09:41 Blood Pressure 153/74 04/07/18 09:41 O2 Sat by Pulse Oximetry 98 04/07/18 09:41 Temperature 98.1 F 04/07/18 09:49 Pulse Rate 59 04/07/18 12:29 Respiratory Rate 18 04/07/18 12:29 Blood Pressure 146/66 04/07/18 12:29 O2 Sat by Pulse Oximetry 100 04/07/18 12:29 Oxygen Delivery Oxygen Delivery Room Air Medical Decision Making - MDM Narrative Medical decision making narrative: Patient seen and examined. Patient presented with visual field deficits. Patient's symptoms have now resolved. Patient is new onset A. fib. Patient does describe near syncopal symptoms prior to arrival. Patient was not a stroke alert given time of onset as well as being on blood thinning medication. Patient has a nonfocal neurologic exam currently. Patient had initial CT scanning of the head and neck. Patient would likely benefit from advanced imaging as well as cardiac monitoring given her new onset A. fib and concerns of near syncope. Patient is agreeable with this plan of care. - Lab Data Lab results reviewed: Yes I reviewed the patient's lab results. Result diagrams: 04/07/18 09:56 04/07/18 09:56 Lab Results 04/07/18 04/07/18 04/07/18 Range/Units 09:56 09:56 09:56 WBC 6.8 (4.3-11.1) K/mcL RBC 4.81 (3.82-4.97) M/mcL Hgb 14.6 (11.5-15.4) g/dL Hct 43.2 (35.3-44.9) % MCV 89.8 (83.0-100.0) fL MCH 30.4 (28.0-33.3) pg MCHC 33.8 (31.6-35.5) g/dL RDW 13.2 (11.5-14.5) % Plt Count 213 (140-400) K/mcL MPV 11.8 (9.4-12.4) fL Immature Gran % 0.9 (0-4) % Seg Neutrophils % 62.0 % Lymphocytes % 25.1 % Monocytes % 8.5 % Eosinophils % 2.9 % Basophils % 0.6 % Neutrophils # 4.2 (1.6-8.9) K/mcL Lymphocytes # 1.7 (0.6-4.6) K/mcL Monocytes # 0.6 (0.0-1.3) K/mcL Eosinophils # 0.2 (0.0-0.6) K/mcL Basophils # 0.0 (0.0-0.2) K/mcL PT 12.9 H (9.4-12.1) Seconds INR 1.1 APTT 36.1 H (26.0-36.0) Seconds Sodium 136 (136-145) mEq/L Potassium 4.2 (3.5-5.1) mEq/L Chloride 104 (98-107) mEq/L Carbon Dioxide 25 (23-29) mEq/L BUN 17 (8-23) mg/dL Creatinine 0.90 (0.60-1.20) mg/dL Est GFR ( Amer) > 60 (> 60) Est GFR (Non-Af Amer) > 60 (> 60) BUN/Creatinine Ratio 19 (6-26) Glucose 174 H (70-105) mg/dL Calculated Osmolality 288 (280-300) Calcium 9.7 (8.6-10.3) mg/dL Troponin I < 0.03 (< 0.04) ng/mL - Radiology Data Radiology results reviewed: Yes I reviewed the patient's radiology results. Chest X-Ray 04/07/18 09:57 IMPRESSION: No acute process. D/ / Ji Garcia MD / Ji Garcia MD Interpreting Provider: Ji Garcia MD Angiography CT 04/07/18 10:04 IMPRESSION: No acute intracranial abnormality. Mild, less than 50%, stenosis of the internal carotid arteries by NASCET criteria. No intracranial flow-limiting stenosis. D/ / 04/07/2018 11:35:45 Kristian Nesbitt MD / aurea Interpreting Provider: Kristian Nesbitt MD Neck CTA 04/07/18 10:04 IMPRESSION: No acute intracranial abnormality. Mild, less than 50%, stenosis of the internal carotid arteries by NASCET criteria. No intracranial flow-limiting stenosis. D/ / 04/07/2018 11:35:45 Kristian Nesbitt MD / aurea Interpreting Provider: Kristian Nesbitt MD - EKG Data EKG #1 EKG attestation: Yes I reviewed and interpreted this EKG. EKG shows normal: sinus rhythm Rate: normal Rhythm: NSR [place]/QRS: normal T wave inversions noted in: III, aVR, v1 Interpretation: no acute changes, nonspecific ST-T wave changes S.B.A.R. - S.B.A.R. Situation: Demographics Background: Presenting Complaint Assessment: Vital Signs, Course and respsone to treatment, Patient/Family Expectation Recommendation: Barrier(s) to disposition, Recommendation based on pending studies, treatments, or consults S.B.A.R. Report Given to: Dr. Narvaez SShyanneB.A.RShyanne Repor Time: 13:31 Attestation Statement - Attestation Attestation: I, Moo Valenzuela DO, examined this patient [id number] and my medical decision-making was reviewed with Dr. Ion Gamboa, Resident Physician. I agree with the documented findings, disposition and treatment plan as described except to the extent set forth below. Please see my progress notes for details.
[2018-04-07] MEDS ORDERED: Isovue-370 500 ML INFUS..BTL IV ONE ×2 (10:04→10:35)
[2018-04-07 10:13] LABS: Basophils % 0.6 %; Eosinophils # 0.2 K/mcL (0.0-0.6); Eosinophils % 2.9 %; Hematocrit 43.2 % (35.3-44.9); Hemoglobin 14.6 g/dL (11.5-15.4); Immature Granulocytes % 0.9 % (0-4); Lymphocytes # 1.7 K/mcL (0.6-4.6); Lymphocytes % 25.1 %; Mean Corpuscular HGB Conc 33.8 g/dL (31.6-35.5); Mean Corpuscular Hemoglobin 30.4 pg (28.0-33.3); Mean Corpuscular Volume 89.8 fL (83.0-100.0); Mean Platelet Volume 11.8 fL (9.4-12.4); Monocytes # 0.6 K/mcL (0.0-1.3); Monocytes % 8.5 %; Neutrophils # 4.2 K/mcL (1.6-8.9); Platelet Count 213 K/mcL (140-400); Red Blood Count 4.81 M/mcL (3.82-4.97); Red Cell Distribution Width 13.2 % (11.5-14.5)
[2018-04-07 10:20] LABS: INR 1.1; Prothrombin Time 12.9 Seconds (9.4-12.1)
[2018-04-07 10:23] LABS: Activated Partial Thrombo Time 36.1 Seconds (26.0-36.0)
[2018-04-07 10:31] LABS: BUN/Creatinine Ratio 19 (6-26); Blood Urea Nitrogen 17 mg/dL (8-23); Calcium 9.7 mg/dL (8.6-10.3); Carbon Dioxide 25 mEq/L (23-29); Chloride 104 mEq/L (98-107); Glucose 174 mg/dL (70-105); Osmolality,Calculated 288 (280-300); Potassium 4.2 mEq/L (3.5-5.1); Sodium 136 mEq/L (136-145); eGFR For Non-African Americans > 60 (> 60)
[2018-04-07 10:32] LABS: Troponin I < 0.03 ng/mL (< 0.04)
--- NOTE | 2018-04-07 11:31 | Emergency Department Note ---
Disposition Clinical Impression: Visual field defect, Near syncope CVA (cerebral vascular accident) Qualifiers: CVA mechanism: unspecified Qualified Code(s): I63.9 - Cerebral infarction, unspecified Disposition: Admitted As Inpatient Condition: Good Referrals: Karla Mercer MD [Non-Partnered Physician] - Forms: ED Satisfaction Letter Time of Disposition: 13:38 General Adult HPI - General Chief complaint: ED Eye Problems Stated complaint: feels funny, vision problem Time Seen by Provider: 04/07/18 09:45 Source: patient, family Mode of arrival: ambulatory Limitations: no limitations - History of Present Illness Pain Scale: 0 - Related Data Home Medications Medication Instructions Recorded Confirmed Aspirin [Adult Aspirin] 81 mg PO DAILY 04/03/18 04/03/18 Cranberry 500 mg PO QAM 04/03/18 04/03/18 Metformin HCl 1,000 mg PO BID 04/03/18 04/03/18 Metoprolol Tartrate 50 mg PO BID 04/03/18 04/03/18 Previous Rx's Medication Instructions Recorded Apixaban [Eliquis] 5 mg PO BID #60 tablet 04/04/18 Diltiazem CD (24hr) [Cardizem CD] 120 mg PO DAILY #30 cap.er.24h 04/04/18 Allergies Allergy/AdvReac Type Severity Reaction Status Date / Time azithromycin Allergy See Verified 04/07/18 09:56 [From Zithromax Z-Jarett] Comments clarithromycin [From Biaxin] Allergy Nausea Verified 04/07/18 09:56 Penicillins Allergy See Verified 04/07/18 09:56 Comments tramadol Allergy See Verified 04/07/18 09:56 Comments Constitutional: Denies: fever Cardiovascular: Denies: chest pain Respiratory: Denies: cough, dyspnea Gastrointestinal: Denies: abdominal pain, nausea, vomiting Past Medical History - Past Medical History Medical history: Reports: atrial fibrillation, COPD, diabetes, hypertension Surgical history: Reports: cholecystectomy, hysterectomy Psychiatric history: Reports: no psych history - Social History Smoking Status: Never smoker Smokeless Tobacco Status: No Alcohol use: Reports: none Drug use: Reports: none Physical Exam - General Limitations: no limitations General appearance: alert, in no apparent distress Course Vital Signs Temperature 98.1 F 04/07/18 09:41 Pulse Rate 62 04/07/18 09:41 Respiratory Rate 15 04/07/18 09:41 Blood Pressure 153/74 04/07/18 09:41 O2 Sat by Pulse Oximetry 98 04/07/18 09:41 Temperature 98.1 F 04/07/18 09:49 Pulse Rate 59 04/07/18 12:29 Respiratory Rate 18 04/07/18 12:29 Blood Pressure 146/66 04/07/18 12:29 O2 Sat by Pulse Oximetry 100 04/07/18 12:29 Oxygen Delivery Oxygen Delivery Room Air Medical Decision Making - Lab Data Result diagrams: 04/07/18 09:56 04/07/18 09:56 Lab Results 04/07/18 04/07/18 04/07/18 Range/Units 09:56 09:56 09:56 WBC 6.8 (4.3-11.1) K/mcL RBC 4.81 (3.82-4.97) M/mcL Hgb 14.6 (11.5-15.4) g/dL Hct 43.2 (35.3-44.9) % MCV 89.8 (83.0-100.0) fL MCH 30.4 (28.0-33.3) pg MCHC 33.8 (31.6-35.5) g/dL RDW 13.2 (11.5-14.5) % Plt Count 213 (140-400) K/mcL MPV 11.8 (9.4-12.4) fL Immature Gran % 0.9 (0-4) % Seg Neutrophils % 62.0 % Lymphocytes % 25.1 % Monocytes % 8.5 % Eosinophils % 2.9 % Basophils % 0.6 % Neutrophils # 4.2 (1.6-8.9) K/mcL Lymphocytes # 1.7 (0.6-4.6) K/mcL Monocytes # 0.6 (0.0-1.3) K/mcL Eosinophils # 0.2 (0.0-0.6) K/mcL Basophils # 0.0 (0.0-0.2) K/mcL PT 12.9 H (9.4-12.1) Seconds INR 1.1 APTT 36.1 H (26.0-36.0) Seconds Sodium 136 (136-145) mEq/L Potassium 4.2 (3.5-5.1) mEq/L Chloride 104 (98-107) mEq/L Carbon Dioxide 25 (23-29) mEq/L BUN 17 (8-23) mg/dL Creatinine 0.90 (0.60-1.20) mg/dL Est GFR ( Amer) > 60 (> 60) Est GFR (Non-Af Amer) > 60 (> 60) BUN/Creatinine Ratio 19 (6-26) Glucose 174 H (70-105) mg/dL Calculated Osmolality 288 (280-300) Calcium 9.7 (8.6-10.3) mg/dL Troponin I < 0.03 (< 0.04) ng/mL Attestation Statement - Attestation Attestation: I, Moo Valenzuela DO, examined this patient [id number] and my medical decision-making was reviewed with Dr. Ion Gamboa, Resident Physician. I agree with the documented findings, disposition and treatment plan as described except to the extent set forth below. Please see my progress notes for details. 67-year-old female presents emergency room with complaint of what she described as tingling sensation left side of her body vision issues in the left eye. Patient was recently diagnosed with atrial fibrillation and started on Eliquis. She noted the initial symptoms at 5 AM this morning and she presented here to the emergency room at 10 AM. Patient is not a candidate for stroke treatment for TPA. Patient is having resolution of the symptoms even prior to arrival here in the emergency room the vision issues do appear to be getting better based on her conversation. She does have a headache at this time. She denies any falls or trauma. Currently denying any chest pain shortness of breath headache vision changes nausea vomiting or diarrhea. Denies any fevers or chills. Patient did have what she thought his palpitations this morning just prior to the onset of the symptoms. She denies any history of anxiety or depression. Vital signs on presentation were stable detailed neurologic evaluation was completed. The patient's head is atraumatic pupils are equal and reactive extraocular muscles are intact oropharynx is patent trachea is midline. She has no stridor no trismus. She has full range of motion of the neck without any difficulty or range of motion deficits. Her NIH stroke scale is 0 at this time. Patient did describe initial left eye monocular hemianopsia that has resolved at this point. Patient is alert she is going she speaks in full sentences. Cranial nerves III through XII are grossly intact. She does not have any visible facial asymmetry she has normal symmetric neuromotor function in the upper and lower extremities. She has normal pulses in the radial and PT distributions bilaterally. Patient has no acute neurologic deficits or symptoms noted at this time. Patient did describe a near syncopal event with her vision closing in on her while she was at home and then coming back. She never did fully pass out. Patient will have detailed workup for neurologic issues including CT CT angiography of the head and neck on chest x- ray EKG and labs looking for infectious etiology. Clinical suspicion is that the patient had arrhythmia secondary to the atrial fibrillation causing near syncopal event versus anxiety panic attack at home today when she felt the palpitations. Disposition pending full workup and treatment course. 1125 Patient is clinically stable. Symptoms developed this completely resolved this time. Patient's family at the bedside and they agree that she is looking much better at this time and feels much better. Labs are resulting at this point imaging modalities are still pending. 1300 Hospitalist is been in meeting and unable to make a phone call back here to the emergency room for admission. Patient has been ready for disposition since 1130. [address] Narvaez reviewed the case and had no other recommendations this time patient will be admitted for further observation and evaluation. No other clinical concern is noted this time..
[2018-04-07] MEDS ORDERED: Aspirin 325 MG TABLET PO ONE (11:52)
[2018-04-07] MEDS ORDERED: Naloxone 0.4 MG/ML INJ IVP PRN (14:14)
[2018-04-07] MEDS ORDERED: Dextrose Gel 15 GM/37.5 ML TUBE PO PRN ×2 (14:27)
[2018-04-07] MEDS ORDERED: D5% in Water 1,000 ML IVC PRN (14:27)
[2018-04-07] MEDS ORDERED: *HR* Dextrose 50 % in Water (Syg) 50 ML SYRINGE IVP PRN (14:27)
--- NOTE | 2018-04-07 14:32 | Internal Med History&Physical ---
<Shabbir Cruz - Last Filed: 04/07/18 15:14> Date of Encounter: 04/07/18 Time of Encounter: 13:30 Internal Medicine - H&P: HPI Chief complaint: Changes in vision/Neuro-type symptoms/Heart palpitations Admitted From: Emergency Dept Plans for Post Hospital Care: Home History of present illness: Ms. Beltran is a 67 year old female w/PMH of newly diagnosed Atrial fibrillation one week ago and on Eliquis, COPD, diabetes controlled w/oral anti- hyperglycemic medication, and HTN presents from the ED w/CC of changes in vision /neuro-type sx and heart palpitations this morning. Pt. reports at approx. 5 a.m. her heart "felt funny" and she began having tunnel vision w/stars in her peripheral vision. States she was diagnosed w/atrial fibrillation on Tuesday and placed on Eliquis. Sx resolved. Associated sx: headache, dizziness, unsteadiness of gait. Pt. reports grandson had sinus infection last week. No other sick contacts. States she had UTI several months ago. Pt. Denies recent illness, fever, chills, nausea, vomiting, unusual bleeding, cough, chest congestion, abdominal pain, diarrhea, constipation, numbness, tingling, difficulty w/speech, weakness of UEs or LEs, pre-syncope, or syncope. Past Med Surg Social Fam HX - Past Medical History Source: patient, old records reviewed, obtained from family Medical history: atrial fibrillation (Dx on Tuesday and placed on Eliquis), COPD , diabetes, hypertension Additional medical history: palpitations. hard of hearing. Psychiatric history: no psych history - Past Surgical History Surgical History: cholecystectomy, hysterectomy Additional surgical history: bilat knee scopes. tonsil biopsy 2 weeks ago today - preliminary negative. - Social History Smoking Status: Never smoker Smokeless Tobacco Status: No Alcohol use: none Drug use: none Occupational status: retired Current living situation: Home, With Family Activity Level: Independent ambulation Recent Out of Country Travel Within the Last 8 Weeks: No Exposure or Possible Exposure to Illness During Travel: No - Family History Mother Race: Family Member Ethnicity: Non- Living Status: Age at : 72 Cause of : Renal cancer Hx Family Cardiac Disorders: Yes ([place]) Hx Family Cancer: Yes (Renal) Hx Family Endocrine Disorder: Yes (DM) Father Race: Family Member Ethnicity: Non- Living Status: Age at : 79 Cause of : [place] Hx Family Cardiac Disorders: Yes ([place], CAD) Hx Family Endocrine Disorder: Yes (DM) Brother Race: Family Member Ethnicity: Non- Living Status: Age at : 49 Cause of : Complications from DM Hx Family Endocrine Disorder: Yes (DM) Sister Race: Family Member Ethnicity: Non- Living Status: Age at : 55 Cause of : Lung cancer Hx Family Cardiac Disorders: Yes ([place]) Hx Family Cancer: Yes (Lung) Hx Family Endocrine Disorder: Yes (DM) Internal Medicine - H&P: Meds Aspirin [Adult Aspirin] 81 mg PO DAILY 04/03/18 [History] Cranberry 500 mg PO QAM 04/03/18 [History] Metformin HCl 1,000 mg PO BID 04/03/18 [History] Metoprolol Tartrate 50 mg PO BID 04/03/18 [History] Apixaban [Eliquis] 5 mg PO BID #60 tablet 04/04/18 [Rx] Diltiazem CD (24hr) [Cardizem CD] 120 mg PO DAILY #30 cap.er.24h 04/04/18 [Rx] 3 Allergy/AdvReac Type Severity Reaction Status Date / Time azithromycin Allergy See Verified 04/07/18 09:56 [From Zithromax Z-Jarett] Comments clarithromycin [From Biaxin] Allergy Nausea Verified 04/07/18 09:56 Penicillins Allergy See Verified 04/07/18 09:56 Comments tramadol Allergy See Verified 04/07/18 09:56 Comments All Systems PM: A 10-system review of systems was performed and is negative for pertinent findings except as documented above in the HPI. - Constitutional Constitutional: as per HPI, no chills, no fever(s), no night sweats - EENT Eyes: as per HPI, change in vision, seeing flashes (Stars in peripheral vision) , tunnel vision, no discharge, no pain, no photophobia Ears: no ear discharge, no ear pain, no tinnitus Nose, mouth and throat: no dysphagia, no nasal discharge, no neck pain, no sore throat - Breasts Breasts: as per HPI - Cardiovascular Cardiovascular ROS IM: no chest pain, no diaphoresis, no dyspnea, no lightheadedness, no palpitations, no syncope - Respiratory Respiratory: no cough, no dyspnea, no wheezing, no excessive phlegm production - Gastrointestinal Gastrointestinal: no abdominal pain, no diarrhea, no hematemesis, no hematochezia, no melena, no nausea, no vomiting - Genitourinary Genitourinary: no change in urinary stream, no dysuria, no flank pain, no hematuria Menstruation: as per HPI, post hysterectomy - Musculoskeletal Musculoskeletal ROS IM: no numbness, no tingling - Integumentary Integumentary IM: no rash, no unusual bruising - Neurological Neurological ROS: as per HPI, disequilibrium, dizziness, other visual disturbances, no confusion, no convulsions, no focal weakness, no numbness, no tingling, no tremor(s) - Psychiatric Psychiatric: as per HPI - Endocrine Endocrine IM: as per HPI - Hematologic/Lymphatic Hematologic/Lymphatic: no easy bruising - Allergic/Immunologic Allergic/Immunologic: as per HPI - Constitutional Vitals: Temp Pulse Resp BP Pulse Ox 98.1 F 59 18 150/79 100 04/07/18 09:49 04/07/18 14:20 04/07/18 14:20 04/07/18 14:20 04/07/18 13:39 General appearance: Present: cooperative, A&O X 3, morbidly obese, pleasant, no acute distress, answers questions appropriately - Head Head exam: Present: atraumatic, normocephalic - Eye Eye exam: Present: PERRL, conjuntiva pink, sclera anicteric Pupils: Present: PERRL - ENT ENT exam: Present: normal exam - Neck Neck exam general surgery: Present: normal inspection, supple, trachea midline. Absent: lymphadenopathy - Respiratory Respiratory exam: Present: CTAB. Absent: accessory muscle use, rales, rhonchi, wheezes - Cardiovascular Cardiovascular exam: Present: RRR, +S1, +S2. Absent: diastolic murmur, gallop, rubs, systolic murmur - GI/Abdominal GI/Abdominal exam: Present: normal bowel sounds, soft, no peritoneal signs. Absent: distended, tenderness - Rectal Rectal exam: Present: deferred - Additional comments: exam deferred. - Extremities Exam Extremities exam: Present: warm, radial pulses palpable and symmetrical. Absent : calf tenderness, cyanotic, pedal edema - Back Exam Back exam: Present: normal inspection - Neurological Exam Neurological exam: Present: alert, CN II-XII intact, oriented X3, no focal deficits. Absent: pronater drift, facial droop, speech deficit - Psychiatric Psychiatric exam: Present: normal affect, normal mood - Skin Skin exam: Present: dry, intact Internal Med - H&P Results - Labs CBC & Chem 7: 04/07/18 09:56 04/07/18 09:56 - EKG Data EKG shows normal: sinus rhythm - EKG Data Prior EKG available for review: yes EKG comments: 04/07/18 14:47 EKG dated 04/04/18 shows sinus bradycardia with sinus arrhythmia, borderline left axis deviation, minimal voltage criteria for LVH. Consider normal variant. EKG dated 04/07/18 shows sinus rhythm with normal P axis N/V rate of 50-99, borderline left axis deviation. - Diagnostic Studies Chest x-ray Additional comments: Impressions Chest X-Ray 04/07/18 09:57 IMPRESSION: No acute process. D/ / Ji Garcia MD / Ji Garcia MD Interpreting Provider: Ji Garcia MD Other Images Additional comments: Impressions Angiography CT 04/07/18 10:04 IMPRESSION: No acute intracranial abnormality. Mild, less than 50%, stenosis of the internal carotid arteries by NASCET criteria. No intracranial flow-limiting stenosis. D/ : / 04/07/2018 11:35:45 Kristian Nesbitt MD / aurea Interpreting Provider: Kristian Nesbitt MD Neck CTA 04/07/18 10:04 IMPRESSION: No acute intracranial abnormality. Mild, less than 50%, stenosis of the internal carotid arteries by NASCET criteria. No intracranial flow-limiting stenosis. D/ / 04/07/2018 11:35:45 Kristian Nesbitt MD / aurea Interpreting Provider: Kristian Nesbitt MD - Assessment and plan (1) Palpitations Current Visit: No Status: Acute Assessment and plan: Acute palpitations w/sx of changes in vision and neuro-type sx this morning. Pt. dx w/atrial fibrillation 4 days ago at [facility] [place] and placed on PO Eliquis and Cardizem. Current SR on EKG. Pt. reports not taking medications this a.m. d/t sx. Continuous cardiac telemetry. Continue pts. PO Cardizem and Eliquis. Consider Cardiology consult if pts. HR goes out of rhythm or begins having cardiac sx. Pt. reports being followed by Dr. Pena. (2) Changes in vision Current Visit: No Status: Acute Assessment and plan: Acute changes in vision this morning w/palpitations. Pt. reports having tunnel vision w/stars in her peripheral vision. Sx transient and resolved. No neuro sx on exam. CTA of the head shows no acute intracranial hemorrhage or extra-axial fluid collection. Benavides-white differentiation maintained. No evidence of mass, mass effect, or midline shift. No evidence of hydrocephalus. MRI of the head/ brain w/o contrast ordered to r/o ischemia/infarct. (3) Atrial fibrillation Current Visit: No Status: Acute Assessment and plan: Acute atrial fibrillation dx on Tuesday. Pt. reports being placed on Eliquis. Pt. reports palpitations today prior to changes in vision and neuro-type sx. EKG today shows sinus rhythm with normal P axis, the rate of 50-99 and borderline left axis deviation. Continue pts. Cardizem and Eliquis. Continuous cardiac telemetry. Consider Cardiology consult if pt. begins having atrial fibrillation or cardiac changes. Qualifiers: Atrial fibrillation type: unspecified Qualified Code(s): I48.91 - Unspecified atrial fibrillation (4) COPD (chronic obstructive pulmonary disease) Current Visit: No Status: Chronic Assessment and plan: Hx of chronic COPD. Stable. Supplemental O2 w/titration and SpO2 monitoring. Qualifiers: COPD type: unspecified COPD Qualified Code(s): J44.9 - Chronic obstructive pulmonary disease, unspecified (5) HTN (hypertension) Current Visit: No Status: Chronic Assessment and plan: Hx of chronic HTN. Monitor pt. and VS. Continue patient's metoprolol tartrate. Qualifiers: Hypertension type: essential hypertension Qualified Code(s): I10 - Essential (primary) hypertension (6) Diabetes mellitus type 2 in obese Current Visit: No Status: Chronic Assessment and plan: Hx of chronic diabetes controlled w/Metformin. Hold Metformin and add low-dose correction insulin sliding scale and hypoglycemic protocol. BG checks ACHS. A1c in a.m. labs. (7) DVT prophylaxis Current Visit: No Status: Acute Assessment and plan: Continue pts. Eliquis for DVT prophylaxis. Monitor pt. for signs of bleeding. (8) Transient neurological symptoms Current Visit: No Status: Acute Assessment and plan: Acute and transient neuro sx this morning accompanied by heart palpitations and changes in vision. Pt. reports at approx. 5 a.m. her heart "felt funny" and she began having tunnel vision w/stars in her peripheral vision. States she was diagnosed w/atrial fibrillation on Tuesday and placed on Eliquis. Pt. given aspirin in ED. Associated sx: headache, dizziness, unsteadiness of gait. Sx resolved on exam and no neuro deficits noted. CTA of the head shows no acute intracranial hemorrhage or extra-axial fluid collection, benavides-white differentiation is maintained, no evidence of mass or mass effect or midline shift, and no evidence of hydrocephalus. CTA of the neck shows mild and less than 50% stenosis of the internal carotid arteries by NASCET criteria and no intracranial flow-limiting stenosis. MRI of head/brain w/o contrast ordered to rule out infarct/ischemia. NIHSS modified. Timed neuro checks. Consider Neurology consult if MRI results abnormal or pts. neuro sx return/worsen. Pt. discussed w/Dr. Narvaez who agrees with plan of care. Patient is high risk for further morbidity and cardiac/neuro event based on new diagnosis of atrial fibrillation 4 days ago requiring anticoagulation on Eliquis and Cardizem use, transient sx requiring MRI, familial cardiac hx; and risk factors of HTN, DM, and morbid obesity. Observation. - Time Spent With Patient Total time spent is greater than 50% in coordination of care (as documented) at patient's floor/unit and/or counseling patient: Greater than 35 minutes <Dorita Narvaez - Last Filed: 04/07/18 16:36> Date of Encounter: 04/07/18 Internal Medicine - H&P: HPI History of present illness: Ms. Beltran is a 67 year old female All Systems PM: A 10-system review of systems was performed and is negative for pertinent findings except as documented above in the HPI. - Constitutional Vitals: Temp Pulse Resp BP Pulse Ox 97.8 F 60 18 147/76 98 04/07/18 14:54 04/07/18 14:54 04/07/18 14:54 04/07/18 14:54 04/07/18 14:54 Internal Med - H&P Results - Labs CBC & Chem 7: 04/07/18 09:56 04/07/18 09:56 - Attending Attestation I have seen and examined this pt independently. I have discussed with MASH PROCESSING OPERATOR Mr Cruz regarding the management plan. Agree with the documentation. - Assessment and plan (1) Diabetes mellitus type 2 in obese Current Visit: No Status: Chronic (2) Palpitations Current Visit: No Status: Acute (3) Atrial fibrillation Current Visit: No Status: Acute Qualifiers: Atrial fibrillation type: unspecified Qualified Code(s): I48.91 - Unspecified atrial fibrillation (4) Changes in vision Current Visit: No Status: Acute (5) COPD (chronic obstructive pulmonary disease) Current Visit: No Status: Chronic Qualifiers: COPD type: unspecified COPD Qualified Code(s): J44.9 - Chronic obstructive pulmonary disease, unspecified (6) HTN (hypertension) Current Visit: No Status: Chronic Qualifiers: Hypertension type: essential hypertension Qualified Code(s): I10 - Essential (primary) hypertension (7) DVT prophylaxis Current Visit: No Status: Acute (8) Transient neurological symptoms Current Visit: No Status: Acute - Time Spent With Patient Total time spent is greater than 50% in coordination of care (as documented) at patient's floor/unit and/or counseling patient:
[2018-04-07] MEDS: Diltiazem CD (24hr) 120 MG CAPSULE PO SCH (16:16)
[2018-04-07 17:47] LABS: Bilirubin,Urine Negative (Negative); Blood,Urine Negative (Negative); Clarity,Urine Clear (Clear); Color,Urine Yellow (Yellow); Glucose,Urine (UA) Normal (Normal); Ketones,Urine Negative (Negative); Leukocyte Esterase,Urine Negative (Negative); Nitrite,Urine Negative (Negative); Protein,Urine Negative (Neg-Trace); Specific Gravity,Urine < 1.005 (1.010-1.025); Urobilinogen,Urine Normal (Normal)
[2018-04-07] MEDS: Insulin LISPRO 300 UNITS/3 ML VIAL SQ SCH ×2 (19:04→20:49)
[2018-04-07] MEDS ORDERED: *HR* LORazepam 2 MG/ML VIAL IVP ONE (19:14)
[2018-04-07] MEDS: Apixaban 5 MG TABLET PO SCH (19:54)
[2018-04-08 05:40] LABS: Alanine Aminotransferase 16 Units/L (7-52); Albumin 3.7 g/dL (3.5-5.7); Albumin/Globulin Ratio 1.1 (1.1-2.2); Alkaline Phosphatase 75 Units/L (34-104); Aspartate Amino Transferase 20 Units/L (13-39); BUN/Creatinine Ratio 23 (6-26); Bilirubin,Total 0.6 mg/dL (0.3-1.0); Blood Urea Nitrogen 16 mg/dL (8-23); Calcium 9.1 mg/dL (8.6-10.3); Carbon Dioxide 23 mEq/L (23-29); Chloride 107 mEq/L (98-107); Chol/HDL Ratio 4.1 (0-4.9); Cholesterol 179 mg/dL (< 200); Globulin 3.3 g/dL (2.4-3.5); Glucose 181 mg/dL (70-105); HDL Cholesterol 44 mg/dL (40-59); LDL Cholesterol,Calculated 116 mg/dL (0-99); Magnesium 2.2 mg/dL (1.6-2.6); Osmolality,Calculated 290 (280-300); Potassium 4.1 mEq/L (3.5-5.1); Sodium 137 mEq/L (136-145); Triglycerides 95 mg/dL (< 150); eGFR For Non-African Americans > 60 (> 60)
[2018-04-08 06:26] LABS: Basophils % 0.4 %; Eosinophils # 0.3 K/mcL (0.0-0.6); Eosinophils % 3.9 %; Hematocrit 39.2 % (35.3-44.9); Hemoglobin 13.5 g/dL (11.5-15.4); Immature Granulocytes % 0.4 % (0-4); Lymphocytes # 1.7 K/mcL (0.6-4.6); Lymphocytes % 25.2 %; Mean Corpuscular HGB Conc 34.4 g/dL (31.6-35.5); Mean Corpuscular Hemoglobin 30.8 pg (28.0-33.3); Mean Corpuscular Volume 89.5 fL (83.0-100.0); Mean Platelet Volume 12.3 fL (9.4-12.4); Monocytes # 0.7 K/mcL (0.0-1.3); Monocytes % 10.3 %; Platelet Count 176 K/mcL (140-400); Red Blood Count 4.38 M/mcL (3.82-4.97); Red Cell Distribution Width 13.1 % (11.5-14.5); Segmented Neutrophils % 59.8 %
[2018-04-08] MEDS: Acetaminophen 325 MG TABLET PO PRN ×2 (08:24→22:14)
[2018-04-08] MEDS: Insulin LISPRO 300 UNITS/3 ML VIAL SQ SCH ×4 (09:00→22:15)
[2018-04-08] MEDS: Apixaban 5 MG TABLET PO SCH ×2 (09:02→22:14)
[2018-04-08] MEDS: Diltiazem CD (24hr) 120 MG CAPSULE PO SCH (09:02)
[2018-04-08] MEDS: Aspirin Enteric Coated 81 MG Tablet PO SCH (09:02)
--- NOTE | 2018-04-08 11:13 | Internal Med Progress Note ---
<Terra Rico - Last Filed: 04/08/18 13:55> Hospitalist Progress Note - Encounter Date of Encounter: 04/08/18 Time of Encounter: 11:08 - Subjective Interval History: Patient is a 67 yo F with history of BELEN, HTN, DM, and recent admission for new onset Afib with placement on anticoagulation who presented to the ED on 04/07/18 with complaints of vision changes and lightheadedness. She Today the patient states her visual symptoms have resolved though he does continue to complain of intermittent light-headedness. It is not provoked by changes in position or head movement. She otherwise feels her blood sugar is not high enough to necessitate insulin and she is concerned about her low heart rate. - Exam Vitals: Temp Pulse Resp BP Pulse Ox 98.2 F 58 18 151/72 96 04/08/18 07:24 04/08/18 07:24 04/08/18 07:24 04/08/18 07:24 04/08/18 07:24 Exam: General: Conversant, No Apparent Distress, able to speak in full sentences and follow commands Neck: No JVD, trachea midline HEENT: PERRL, normocephalic, atraumatic Cardiac: Regular Rate and Rhythm, at times bradycardic to 50s, Normal S1 and S2 , No murmurs appreciated Pulmonary: Normal Breath Sounds, No Wheezes, Rales, or Rhonchi, Not in respiratory distress Abdomen: soft, tontender, no bruits, no guarding Neuro: Alert and responsive, No focal deficits noted Vascular: Normal capillary refill Skin: No rashes noted on visualized skin Musculoskeletal: No Chest Wall Tenderness Extremities: No Clubbing, No Cyanosis, No Edema, Normal Pulses Psych: Slightly anxious, pleasant, conversant - Assessment and Plan (1) Transient neurological symptoms Current Visit: Yes Status: Acute Assessment and Plan: - Visual changes currently resolved - Intermittent episodes of lightheadedness without specific trigger - MRI brain/head negative - CTA neck and brain showed mild carotid stenosis - May be due to bradycardia, will decrease metoprolol from 50mg BID to 25mg BID and reassess symptoms - Obtain orthostatic vitals - Unlikely BPPV as it is not positional, possible TIA but MRI negative - PT/OT evals pending (2) Atrial fibrillation with rapid ventricular response Current Visit: No Status: Acute Assessment and Plan: - Currently sinus rhythym - Continues on eliquis and ASA - Continues on cardizem 120mg - Decrease metoprolol from 50mg BID to 25mg BID - Per previous cardiology notes, was to leave the hospital on ASA only until her lymph node biopsy then start eliquis but the patient states she has been taken eliquis at [facility] - Will likely need to d/c eliquis 48 hours prior to her lymph node biopsy at [facility] - Will continue to monitor the patient for changes (3) Diabetes mellitus type 2 in obese Current Visit: Yes Status: Chronic Assessment and Plan: - On metformin at home - Continues on sliding scale insulin in hospital - Diabetic diet (4) BELEN (obstructive sleep apnea) Current Visit: Yes Status: Acute Assessment and Plan: - Does not utilize CPAP as she cannot tolerate it (5) HTN (hypertension) Current Visit: Yes Status: Chronic Assessment and Plan: - On Metopolol 50mg BID, now 25mg BID (6) DVT prophylaxis Current Visit: Yes Status: Acute Assessment and Plan: - On eliquis - Time Spent with Patient Total time spent is greater than 50% in coordination of care (as documented) at patient's floor/unit and/or counseling patient: Greater than 35 minutes Plan of Care Discussed with: nurse Internal Medicine: Result - Labs CBC & Chem 7: 04/08/18 06:05 04/08/18 04:51 Labs: Short CBC 04/08/18 Range/Units 06:05 WBC 6.7 (4.3-11.1) K/mcL Hgb 13.5 (11.5-15.4) g/dL Hct 39.2 (35.3-44.9) % Plt Count 176 (140-400) K/mcL Neutrophils # 4.0 (1.6-8.9) K/mcL BMP 04/08/18 04:51 Sodium 137 Potassium 4.1 Chloride 107 Carbon Dioxide 23 BUN 16 Creatinine 0.70 Glucose 181 H Calcium 9.1 Cardiac Enzymes 04/07/18 04/07/18 Range/Units 16:13 22:15 Troponin I < 0.03 < 0.03 (< 0.04) ng/mL Liver Function 04/08/18 Range/Units 04:51 Total Bilirubin 0.6 (0.3-1.0) mg/dL AST 20 (13-39) Units/L ALT 16 (7-52) Units/L Alkaline Phosphatase 75 (34-104) Units/L Albumin 3.7 (3.5-5.7) g/dL Urine 04/07/18 Range/Units 17:20 Urine Color Yellow (Yellow) Urine Clarity Clear (Clear) Urine pH 7.0 (5.0-8.0) pH Units Ur Specific [place] < 1.005 L (1.010-1.025) Urine Protein Negative (Neg-Trace) mg/dL Urine Glucose (UA) Normal (Normal) mg/dL - ABG Interpretation ABG results: PT/INR, D-dimer PT 12.9 Seconds (9.4-12.1) H 04/07/18 09:56 - Impressions Impressions Brain MRI 04/07/18 14:14 IMPRESSION: No acute intracranial abnormality. Mild parenchymal volume loss. Minimal chronic microvascular disease. D/ / Curly Davis MD / Curly Davis MD Interpreting Provider: Curly Davis MD Consult Discharge Plan - Plan Referrals: Karla Mercer MD [Primary Care Provider] - <Raymond Brewster - Last Filed: 04/08/18 15:03> Hospitalist Progress Note - Encounter Date of Encounter: 04/08/18 - Exam Vitals: Temp Pulse Resp BP Pulse Ox 98.2 F 58 16 137/68 96 04/08/18 07:24 04/08/18 11:09 04/08/18 11:09 04/08/18 11:09 04/08/18 11:09 - Assessment and Plan (1) Diabetes mellitus type 2 in obese Current Visit: Yes Status: Chronic (2) Palpitations Current Visit: No Status: Acute (3) Atrial fibrillation Current Visit: No Status: Acute (4) Changes in vision Current Visit: No Status: Acute (5) COPD (chronic obstructive pulmonary disease) Current Visit: No Status: Deleted (6) HTN (hypertension) Current Visit: Yes Status: Chronic (7) DVT prophylaxis Current Visit: Yes Status: Acute (8) Transient neurological symptoms Current Visit: Yes Status: Acute - Time Spent with Patient Total time spent is greater than 50% in coordination of care (as documented) at patient's floor/unit and/or counseling patient: Internal Medicine: Result - Labs CBC & Chem 7: 04/08/18 06:05 04/08/18 04:51 Labs: Short CBC 04/08/18 Range/Units 06:05 WBC 6.7 (4.3-11.1) K/mcL Hgb 13.5 (11.5-15.4) g/dL Hct 39.2 (35.3-44.9) % Plt Count 176 (140-400) K/mcL Neutrophils # 4.0 (1.6-8.9) K/mcL BMP 04/08/18 04:51 Sodium 137 Potassium 4.1 Chloride 107 Carbon Dioxide 23 BUN 16 Creatinine 0.70 Glucose 181 H Calcium 9.1 Cardiac Enzymes 04/07/18 04/07/18 Range/Units 16:13 22:15 Troponin I < 0.03 < 0.03 (< 0.04) ng/mL Liver Function 04/08/18 Range/Units 04:51 Total Bilirubin 0.6 (0.3-1.0) mg/dL AST 20 (13-39) Units/L ALT 16 (7-52) Units/L Alkaline Phosphatase 75 (34-104) Units/L Albumin 3.7 (3.5-5.7) g/dL Urine 04/07/18 Range/Units 17:20 Urine Color Yellow (Yellow) Urine Clarity Clear (Clear) Urine pH 7.0 (5.0-8.0) pH Units Ur Specific [place] < 1.005 L (1.010-1.025) Urine Protein Negative (Neg-Trace) mg/dL Urine Glucose (UA) Normal (Normal) mg/dL - ABG Interpretation ABG results: PT/INR, D-dimer PT 12.9 Seconds (9.4-12.1) H 04/07/18 09:56 - Impressions Impressions Brain MRI 04/07/18 14:14 IMPRESSION: No acute intracranial abnormality. Mild parenchymal volume loss. Minimal chronic microvascular disease. D/ / Curly Davis MD / Curly Davis MD Interpreting Provider: Curly Davis MD - Attending Attestation I examined this patient and my medical decision-making was reviewed with the Resident Physician Dr. Jacobson. I agree with the documented findings, disposition and treatment plan as described except to the extent set forth below. <Terra Rico - Last Filed: 04/08/18 13:55> (5) HTN (hypertension) Qualifiers: Hypertension type: essential hypertension Qualified Code(s): I10 - Essential (primary) hypertension <Raymond Brewster - Last Filed: 04/08/18 15:03> (3) Atrial fibrillation Qualifiers: Atrial fibrillation type: unspecified Qualified Code(s): I48.91 - Unspecified atrial fibrillation (5) COPD (chronic obstructive pulmonary disease) Qualifiers: COPD type: unspecified COPD Qualified Code(s): J44.9 - Chronic obstructive pulmonary disease, unspecified (6) HTN (hypertension) Qualifiers: Hypertension type: essential hypertension Qualified Code(s): I10 - Essential (primary) hypertension
[2018-04-08 11:33] LABS: Estimated Average Glucose 166 mg/dl; Hemoglobin A1C 7.4 %
--- NOTE | 2018-04-08 15:51 | Electrocardiograph Report ---
[place] [facility] Test Date: 2018-04-07 Pat Name: Sania Beltran Department: Room: [facility] Gender: F Brusher Hand: : 1950 Requested By: Ion Gamboa Order Number: [id number] Reading MD: Diego Ballesteros Measurements Intervals [place] Rate: 60 P: 30 MT: 134 QRS: -22 QRSD: 95 T: 2 QT: 410 QTc: 410 Interpretive Statements Sinus rhythm Borderline left axis deviation Electronically Signed On 04-08-2018 15:50:20 EDT by Diego Ballesteros
[2018-04-08] MEDS ORDERED: *HR* HYDROcodone/Acet 7.5/325 mg TABLET PO ONE (23:37)
[2018-04-08] MEDS ORDERED: Ondansetron 4 MG/2 ML VIAL IVP PRN (23:39)
[2018-04-09] MEDS: Acetaminophen 325 MG TABLET PO PRN (07:00)
[2018-04-09 07:14] LABS: Alanine Aminotransferase 18 Units/L (7-52); Albumin/Globulin Ratio 1.2 (1.1-2.2); Alkaline Phosphatase 82 Units/L (34-104); Aspartate Amino Transferase 20 Units/L (13-39); BUN/Creatinine Ratio 15 (6-26); Bilirubin,Total 0.6 mg/dL (0.3-1.0); Blood Urea Nitrogen 12 mg/dL (8-23); Calcium 9.3 mg/dL (8.6-10.3); Carbon Dioxide 22 mEq/L (23-29); Chloride 106 mEq/L (98-107); Globulin 3.4 g/dL (2.4-3.5); Glucose 211 mg/dL (70-105); Osmolality,Calculated 286 (280-300); Potassium 4.1 mEq/L (3.5-5.1); Sodium 135 mEq/L (136-145); Total Protein 7.4 g/dL (6.4-8.9); eGFR For Non-African Americans > 60 (> 60)
[2018-04-09 07:41] VITALS: BP 158/81
--- NOTE | 2018-04-09 08:26 | Discharge Summary ---
<Terra Rico - Last Filed: 04/09/18 09:25> - NOTES TO OUTPATIENT PROVIDER Notes to Outpatient Provider: Changed Metoprolol from 50mg BID to 25mg BID. Patient inquired about need for anxiolytic, discussed SSRIs. Orders not resulted at time of discharge: Pending orders 04/10/18 04:00 Comprehensive Metabolic Panel AM 0400 Date of Encounter: 04/09/18 Time of Encounter: 08:26 - Discharge Diagnosis (1) Transient neurological symptoms Priority: Primary Status: Acute (2) Atrial fibrillation with rapid ventricular response Priority: Secondary Status: Acute (3) Diabetes mellitus type 2 in obese Priority: Secondary Status: Chronic (4) BELEN (obstructive sleep apnea) Priority: Secondary Status: Acute (5) HTN (hypertension) Priority: Secondary Status: Chronic Qualifiers: Hypertension type: essential hypertension Qualified Code(s): I10 - Essential (primary) hypertension (6) DVT prophylaxis Priority: Secondary Status: Acute Hospital course: Ms. Beltran is a 67 year old female who presented to the emergency department on 04/07/18 with complaints of visual changes and left sided weakness. She was recently diagnosed with atrial fibrillation and placed on eliquis and aspirin. On presentation she was afebrile and in sinus rhythym without neurological deficits. Her visual symptoms were reportedly resolved. CTA head and neck revealed mild internal carotid stenosis but no evidence of acute occlusion. MRI brain revealed small areas of likely microvascular disease but no evidence of ischemia or acute hemorrhage. The patient was admitted and continued to complain of intermittent headache and lightheadedness which was not provoked by head movement or standing. Heart rate sustained in the 50s-60s thus her metoprolol dosage was halved from 50mg BID to 25mg BID. This resulted in improvement in her lightheadedness but she continued to complain of visual "fog " and pain extending from her right eye to back of her head. This pain was relieved by acetaminophen. Given her symptoms continue to improve with tylenol this is likely a tension headache vs complex migraine. Her daughter also makes mention she may have anxiety which is contributing to her symptoms and inquires about the need for anxiolytics. Encouraged her to follow up with her primary care physician within the next week for evaluation for the need for anxiolytics , migraine medication, or further testing. She may also need repeat sleep study given her history of BELEN without the use of CPAP. She is to follow up with cardiology on 04/17/18. She was to have ENT performed lymph node biopsies performed in her neck later next week but she states she may skip this appointment as she has too much going on. Encouraged her to call the ENT office to discuss the need for holding eliquis 24-48 hours prior to procedure should she go ahead with the biopsy. The patient agrees with and understands the course of treatment plan including plan for discharge and follow up. All questions answered. Discharge discussed with: patient, family - Time Spent with Patient Total time spent providing and/or coordinating discharge services: Greater than 30 minutes - Discharge Medications Home Medications: Aspirin [Adult Aspirin] 81 mg PO DAILY 04/03/18 [History] Cranberry 500 mg PO QAM 04/03/18 [History] Metformin HCl 1,000 mg PO BID 04/03/18 [History] Apixaban [Eliquis] 5 mg PO BID #60 tablet 04/04/18 [Rx] Diltiazem CD (24hr) [Cardizem CD] 120 mg PO DAILY #30 cap.er.24h 04/04/18 [Rx] Acetaminophen [Tylenol] 650 mg PO Q6HR PRN tablet 04/09/18 [Rx] Metoprolol [Lopressor] 25 mg PO BID tablet 04/09/18 [Rx] Allergies/Adverse Reactions: 3 Allergy/AdvReac Type Severity Reaction Status Date / Time azithromycin Allergy See Verified 04/07/18 09:56 [From Zithromax Z-Jarett] Comments clarithromycin [From Biaxin] Allergy Nausea Verified 04/07/18 09:56 Penicillins Allergy See Verified 04/07/18 09:56 Comments tramadol Allergy See Verified 04/07/18 09:56 Comments Date of admission: 04/07/18 13:40 Primary care physician: Karla Mercer MD Discharging clinician: Terra Rico Anticipated date of discharge: 04/09/18 - Constitutional Vitals: Temp Pulse Resp BP Pulse Ox 98 F 65 18 158/81 97 04/09/18 07:38 04/09/18 07:38 04/09/18 07:38 04/09/18 07:38 04/09/18 07:38 General appearance: Present: cooperative, A&O X 3, morbidly obese, pleasant, no acute distress, answers questions appropriately Exam: General: Conversant, No Apparent Distress, able to speak in full sentences and follow commands. Sitting upright in chair. Neck: No JVD, trachea midline HEENT: PERRL, normocephalic, atraumatic Cardiac: Regular Rate and Rhythm, Normal S1 and S2, No murmurs appreciated Pulmonary: Normal Breath Sounds, No Wheezes, Rales, or Rhonchi, Not in respiratory distress Abdomen: soft, tontender, no bruits, no guarding Neuro: Alert and responsive, No focal deficits noted Vascular: Normal capillary refill Skin: No rashes noted on visualized skin Extremities: No Clubbing, No Cyanosis, No Edema, Normal Pulses Psych: Slightly anxious, pleasant, conversant - Patient Status Disposition: Home, Self-Care Condition: Good Functional capacity at discharge: independent ambulation Overall status at discharge: patient is back to baseline - Discharge Instructions Instructions: Transient Ischemic Attack (DC), Atrial Flutter (DC), Atrial Fibrillation (DC), Diabetes Mellitus Type 2 in Adults (DC), Chronic Hypertension (DC) Follow Up With: Karla Mercer MD [Primary Care Provider] - (please call for appointment within one week of discharge.) Additional Instructions: - Please follow up with your primary care physician this week for further evaluation. - Please use tylenol 1000mg and ibuprofen 600mg every 8 hours for your headache. - Follow up with cardiology next week for your scheduled appointment. Until then, continue your home medications of aspirin 81mg, carvedilol 120mg, and eliquis 5mg. - Take Metoprolol 25mg twice daily for management of your blood pressure. - Should you develop any continued visual changes, chest pain, prolonged bleeding, palpitations, shortness of breath, or any other symptoms worrisome to your please return to the emergency department for evaluation. - Diet and Activity Activity: increase activity as tolerated Diet: diabetic diet <Raymond Brewster - Last Filed: 04/10/18 16:55> Orders not resulted at time of discharge: Pending orders 04/10/18 04:00 Comprehensive Metabolic Panel AM 0400 Date of Encounter: 04/10/18 - Discharge Diagnosis (1) Diabetes mellitus type 2 in obese Status: Chronic (2) Palpitations Status: Acute (3) Atrial fibrillation Status: Acute Qualifiers: Atrial fibrillation type: unspecified Qualified Code(s): I48.91 - Unspecified atrial fibrillation (4) Changes in vision Status: Acute (5) COPD (chronic obstructive pulmonary disease) Status: Deleted Qualifiers: COPD type: unspecified COPD Qualified Code(s): J44.9 - Chronic obstructive pulmonary disease, unspecified (6) HTN (hypertension) Status: Chronic Qualifiers: Hypertension type: essential hypertension Qualified Code(s): I10 - Essential (primary) hypertension (7) DVT prophylaxis Status: Acute (8) Transient neurological symptoms Status: Acute Hospital course: Ms. Beltran is a 67 year old female - Time Spent with Patient Total time spent providing and/or coordinating discharge services: Date of admission: 04/07/18 13:40 Primary care physician: Karla Mercer MD - Constitutional Exam: General: Conversant, No Apparent Distress, able to speak in full sentences and follow commands. Sitting upright in chair. Neck: No JVD, trachea midline HEENT: PERRL, normocephalic, atraumatic Cardiac: Regular Rate and Rhythm, Normal S1 and S2, No murmurs appreciated Pulmonary: Normal Breath Sounds, No Wheezes, Rales, or Rhonchi, Not in respiratory distress Abdomen: soft, tontender, no bruits, no guarding Neuro: Alert and responsive, No focal deficits noted Vascular: Normal capillary refill Skin: No rashes noted on visualized skin Extremities: No Clubbing, No Cyanosis, No Edema, Normal Pulses Psych: Slightly anxious, pleasant, conversant - Constitutional Vitals: Temp Pulse Resp BP Pulse Ox 98 F 65 18 158/81 97 04/09/18 07:38 04/09/18 07:38 04/09/18 07:38 04/09/18 07:38 04/09/18 07:38 - Attending Attestation I examined this patient and my medical decision-making was reviewed with the Resident Physician Dr. Rico. I agree with the documented findings, disposition and treatment plan as described except to the extent set forth below. Patient presents with symptoms consistent with complicated migraine. Symptoms resolved with Tylenol. We will not prescribe triptan medication since Tylenol was effective in treating headache. Patient may need a Neurology referral at some point after discharge.
[2018-04-09] MEDS: Apixaban 5 MG TABLET PO SCH (09:57)
[2018-04-09] MEDS: Aspirin Enteric Coated 81 MG Tablet PO SCH (09:57)
[2018-04-09] MEDS: Diltiazem CD (24hr) 120 MG CAPSULE PO SCH (09:57)
[2018-04-09] MEDS: Insulin LISPRO 300 UNITS/3 ML VIAL SQ SCH (10:02)
== END 2018-04-09 11:17 | disposition home or self-care (01) ==
LOC: 2NENU 09:39 → EMEROOARM 09:39 → 2NENU 14:39
PROVIDERS: ADMIT Internal Medicine; ATTEND Internal Medicine

== ENCOUNTER 2019-04-19 10:13 | Inpatient (IN) ==
--- NOTE | 2019-04-19 10:45 | Emergency Department Note ---
Disposition Clinical Impression: Atrial fibrillation Qualifiers: Atrial fibrillation type: paroxysmal Qualified Code(s): I48.0 - Paroxysmal atrial fibrillation Disposition: Admitted As Inpatient Condition: Fair Time of Disposition: 12:30 General Adult HPI - General Chief complaint: ED Arrhythmia/Palpitations Stated complaint: "a-fib" Time Seen by Provider: 04/19/19 10:17 Source: patient Mode of arrival: ambulatory Limitations: no limitations Nursing Notes Reviewed: Yes Vital Signs Reviewed: Yes - History of Present Illness HPI Narrative: Patient is a 68F with PMHx of heart palpitations, DM, PACs, PVCs, and fibromyalgia, presents to the ED for evaluation of lightheadedness and palpitations. Patient states that over the past 2 days she has been experiencing lightheadedness where she feels like she is going to pass out and also increasing palpitations. Patient states 2 days ago she had nausea and vomiting associated with her lightheadedness. States that she has been cutting her heart rate in the 140s to 160s. States she does have a baseline palpitations out of that and worse over the past 2 days. She denying any chest pain or shortness of breath. Patient follows along with Dr. Pena for cardiology. She denies any other changes in her medications or any recent illness. Pain Scale: 0 - Related Data Home Medications Medication Instructions Recorded Confirmed Aspirin [Adult Aspirin] 81 mg PO DAILY 04/03/18 04/19/19 Cranberry 500 mg PO QAM PRN 04/03/18 04/19/19 Metformin HCl 1,000 mg PO BID 04/03/18 04/19/19 Ibuprofen [Ibu] 400 mg PO Q6H PRN 04/19/19 04/19/19 Meclizine [Antivert] 12.5 mg PO TID PRN 04/19/19 04/19/19 Metoprolol [Lopressor] 25 mg PO QAM 04/19/19 04/19/19 Previous Rx's Medication Instructions Recorded Apixaban [Eliquis] 5 mg PO BID #60 tablet 04/04/18 Diltiazem CD (24hr) [Cardizem CD] 120 mg PO DAILY #30 cap.er.24h 04/04/18 Allergies Allergy/AdvReac Type Severity Reaction Status Date / Time azithromycin Allergy See Verified 04/07/18 09:56 [From Zithromax Z-Jarett] Comments clarithromycin [From Biaxin] Allergy Nausea Verified 04/07/18 09:56 Penicillins Allergy See Verified 04/07/18 09:56 Comments tramadol Allergy See Verified 04/07/18 09:56 Comments All systems ED: reviewed and negative except as stated. Review of Systems: As Per HPI Constitutional: Denies: fever, chills Cardiovascular: Reports: palpitations. Denies: chest pain, dyspnea on exertion, orthopnea, edema, syncope, paroxysmal nocturnal dyspnea Respiratory: Denies: cough, dyspnea, wheezes Gastrointestinal: Denies: abdominal pain, nausea, vomiting, diarrhea Genitourinary: Denies: urgency, dysuria, frequency Musculoskeletal: Denies: back pain, neck pain Integumentary: Denies: rash Neurological: Denies: headache, weakness, numbness, paresthesias, confusion Past Medical History - Past Medical History Attestation: Yes The following information was validated with the patient. Medical history: Reports: atrial fibrillation, COPD, diabetes, hypertension Surgical history: Reports: cholecystectomy, hysterectomy Psychiatric history: Reports: no psych history - Social History Smoking Status: Never smoker Smokeless Tobacco Status: No Alcohol use: Reports: none Drug use: Reports: none Physical Exam CONSTITUTIONAL: Well-appearing; well-nourished; A&O X 3, in no apparent distress. Tachycardia. HEAD: Normocephalic; atraumatic EYES: PERRL, no scleral icterus NOSE: The nose is normal in appearance without rhinorrhea NECK: No JVD or distended neck veins RESP: Normal chest excursion with respiration; breath sounds clear and equal bilaterally; no wheezes, rhonchi, or rales CARD: Irregular rhythm, without murmurs, rub or gallop ABD: Non-distended; non-tender, soft, without rigidity, rebound or guarding,no pulsatile mass CHEST: No pain with palpation SKIN: Normal for age and race; warm and dry without diaphoresis ; no apparent lesions EXTREMITIES: Pulses are 2 plus and equal times 4 extremities, no peripheral edema or calf muscle pain Course Course Narrative: Patient was sitting for evaluation of lightheadedness and palpitations with known history of paroxysmal atrial fibrillation. Physical exam shows patient does have a fast and irregular rhythm and EKG shows atrial fibrillation at a rate of 119. Upon review of her home medication from [facility] patient is on metoprolol tartrate 25mg BID, Cardizem 120 mg tablet daily, and Eliquis 5mg. Patient denies any recent illness or changes in medication to have caused her to go into paroxysmal atrial fibrillation. Once labs have returned we will consult cardiology for further management for rate control and admission to hospital. - Reevaluation(s) Reevaluation #1: Discussed patient's case with the baby stroller rental clerk on-call, Dr. Pena and he did not want any further medication intervention at this time. Given that her rate is low enough and she is here medically stable. Discussed admission for observation with cardiac monitoring so that he can determine which medications would be best whether she needs increase of her current home medications or if she needs to be placed on an antiarrhythmic medication Time: 12:27 Vital Signs Temperature 97.5 F L 04/19/19 10:18 Pulse Rate 116 04/19/19 10:18 Respiratory Rate 18 04/19/19 10:18 Blood Pressure 146/88 04/19/19 10:18 O2 Sat by Pulse Oximetry 98 04/19/19 10:18 Temperature 97.5 F L 04/19/19 10:18 Pulse Rate 91 04/19/19 11:44 Respiratory Rate 18 04/19/19 11:44 Blood Pressure 116/55 04/19/19 11:44 O2 Sat by Pulse Oximetry 98 04/19/19 11:44 Oxygen Delivery Oxygen Delivery Room Air Medical Decision Making - Medical Records Medical records reviewed: Yes I reviewed the patient's medical records. - Lab Data Lab results reviewed: Yes I reviewed the patient's lab results. Result diagrams: 04/19/19 10:45 04/19/19 10:45 Lab Results 04/19/19 04/19/19 Range/Units 10:45 10:45 WBC 7.6 (4.3-11.1) K/mcL RBC 4.97 (3.82-4.97) M/mcL Hgb 14.6 (11.5-15.4) g/dL Hct 44.9 (35.3-44.9) % MCV 90.3 (83.0-100.0) fL MCH 29.4 (28.0-33.3) pg MCHC 32.5 (31.6-35.5) g/dL RDW 13.6 (11.5-14.5) % Plt Count 210 (140-400) K/mcL MPV 11.4 (9.4-12.4) fL Immature Gran % 0.8 (0-4) % Seg Neutrophils % 63.7 % Lymphocytes % 23.7 % Monocytes % 9.5 % Eosinophils % 1.6 % Basophils % 0.7 % Neutrophils # 4.8 (1.6-8.9) K/mcL Lymphocytes # 1.8 (0.6-4.6) K/mcL Monocytes # 0.7 (0.0-1.3) K/mcL Eosinophils # 0.1 (0.0-0.6) K/mcL Basophils # 0.1 (0.0-0.2) K/mcL Sodium 135 L (136-145) mEq/L Potassium 4.7 (3.5-5.1) mEq/L Chloride 105 (98-107) mEq/L Carbon Dioxide 17 L (23-29) mEq/L BUN 17 (8-23) mg/dL Creatinine 0.88 (0.60-1.20) mg/dL Est GFR ( Amer) > 60 (> 60) Est GFR (Non-Af Amer) > 60 (> 60) BUN/Creatinine Ratio 19 (6-26) Glucose 181 H (70-105) mg/dL Calculated Osmolality 286 (280-300) Calcium 9.3 (8.6-10.3) mg/dL Troponin I < 0.03 (< 0.04) ng/mL TSH 3.964 (0.340-5.600) mcIU/mL - Radiology Data Radiology results reviewed: Yes I reviewed the patient's radiology results. Chest X-Ray 04/19/19 10:29 IMPRESSION: Stable chest without acute cardiopulmonary process. D/ / Garrett Combs MD / Garrett Combs MD Interpreting Provider: Garrett Combs MD - EKG Data EKG #1 EKG attestation: Yes I reviewed and interpreted this EKG. EKG results narrative: EKG shows atrial fibrillation at rate of 119. Unchanged when compared to EKG performed on 05/30/18. Critical Care Time Critical Care Time: No Attestation Statement - Attestation Attestation: I examined this patient and my medical decision-making was reviewed with the Resident Physician. I agree with the documented findings, disposition and treatment plan as described except to the extent set forth below. Patient does have complaints of atrial fibrillation. The patient has had some lightheadedness, she has had no syncope. She has no severe shortness of breath, clear breath sounds on examination. The patient does have a mildly tachycardic rate and irregular rhythm consistent with atrial fibrillation. The patient did have an EKG. The EKG did show evidence of atrial fibrillation without ST elevation or depression. I do agree with the resident's interpretation. The patient this point in time did not require any Cardizem or Cardizem drip, case was discussed with cardiology services. They would like to have the patient further admitted for observation secondary to her arrhythmia. Patient will be admitted in stable condition. No critical care time on this individual
[2019-04-19 10:56] LABS: Basophils # 0.1 K/mcL (0.0-0.2); Basophils % 0.7 %; Eosinophils # 0.1 K/mcL (0.0-0.6); Eosinophils % 1.6 %; Hematocrit 44.9 % (35.3-44.9); Hemoglobin 14.6 g/dL (11.5-15.4); Immature Granulocytes % 0.8 % (0-4); Lymphocytes # 1.8 K/mcL (0.6-4.6); Lymphocytes % 23.7 %; Mean Corpuscular HGB Conc 32.5 g/dL (31.6-35.5); Mean Corpuscular Hemoglobin 29.4 pg (28.0-33.3); Mean Corpuscular Volume 90.3 fL (83.0-100.0); Mean Platelet Volume 11.4 fL (9.4-12.4); Monocytes # 0.7 K/mcL (0.0-1.3); Monocytes % 9.5 %; Neutrophils # 4.8 K/mcL (1.6-8.9); Platelet Count 210 K/mcL (140-400); Red Blood Count 4.97 M/mcL (3.82-4.97); Red Cell Distribution Width 13.6 % (11.5-14.5); Segmented Neutrophils % 63.7 %; White Blood Count 7.6 K/mcL (4.3-11.1)
[2019-04-19 12:11] LABS: BUN/Creatinine Ratio 19 (6-26); Blood Urea Nitrogen 17 mg/dL (8-23); Calcium 9.3 mg/dL (8.6-10.3); Carbon Dioxide 17 mEq/L (23-29); Chloride 105 mEq/L (98-107); Glucose 181 mg/dL (70-105); Osmolality,Calculated 286 (280-300); Potassium 4.7 mEq/L (3.5-5.1); Sodium 135 mEq/L (136-145); eGFR For African Americans > 60 (> 60); eGFR For Non-African Americans > 60 (> 60)
[2019-04-19 12:12] LABS: Thyroid Stimulating Hormone 3.964 mcIU/mL (0.340-5.600); Troponin I < 0.03 ng/mL (< 0.04)
[2019-04-19 12:28] LABS: Magnesium 1.9 mg/dL (1.6-2.6)
--- NOTE | 2019-04-19 13:39 | Internal Med History&Physical ---
Date of Encounter: 04/19/19 Time of Encounter: 13:31 Internal Medicine - H&P: HPI Chief complaint: Palpitations Admitted From: Emergency Dept History of present illness: Sania Beltran is a 68 F w hx A-Fib on AC, HTN, DM2, BELEN, obesity, fibrom yalgia, who p/w palpitations and racing heart rate. Patient states that this morning she experienced her heart racing and could tell that she was in her A- Fib. Her concern is finding out what caused it to go so fast. States that on her home monitor, the readings bounced around from as fast as 230 down to as slow as 40, with several of them in the 150s. Compliant with her home meds. Denies any chest pain, N/V, diaphoresis, abd pain or bloating, SOB, or edema. She takes metoprolol 25 bid and cardizem 120 daily. In the ED, pt vitals afebrile, HR 90-110s, RR 18, SBP 120-150s. She was placed on tele. Labs unremarkable except HCO3 17, no anion gap. Case discussed with her underwear cutter Dr Pena who rec'd continued tele and no med changes just yet. Past medical, surgical, social, and family histories reviewed and updated as below. Past Med Surg Social Fam HX - Past Medical History Medical history: atrial fibrillation, COPD, diabetes, hypertension Additional medical history: palpitations. hard of hearing. Psychiatric history: no psych history - Past Surgical History Surgical History: cholecystectomy, hysterectomy Additional surgical history: bilat knee scopes. tonsil biopsy 2 weeks ago today- preliminary negative. - Social History Smoking Status: Never smoker Smokeless Tobacco Status: No Alcohol use: none Drug use: none - Family History Mother Family Member Ethnicity: Non- Living Status: Hx Family Cardiac Disorders: Yes (VT) Hx Family Cancer: Yes (Renal) Hx Family Endocrine Disorder: Yes (DM) Father Family Member Ethnicity: Non- Living Status: Hx Family Cardiac Disorders: Yes (VT, CAD) Hx Family Endocrine Disorder: Yes (DM) Brother Family Member Ethnicity: Non- Living Status: Hx Family Endocrine Disorder: Yes (DM) Sister Family Member Ethnicity: Non- Living Status: Hx Family Cardiac Disorders: Yes (VT) Hx Family Cancer: Yes (Lung) Hx Family Endocrine Disorder: Yes (DM) Internal Medicine - H&P: Meds Aspirin [Adult Aspirin] 81 mg PO DAILY 04/03/18 [History] Cranberry 500 mg PO QAM PRN 04/03/18 [History] Metformin HCl 1,000 mg PO BID 04/03/18 [History] Apixaban [Eliquis] 5 mg PO BID #60 tablet 04/04/18 [Rx] Diltiazem CD (24hr) [Cardizem CD] 120 mg PO DAILY #30 cap.er.24h 04/04/18 [Rx] Ibuprofen [Ibu] 400 mg PO Q6H PRN 04/19/19 [History] Meclizine [Antivert] 12.5 mg PO TID PRN 04/19/19 [History] Metoprolol [Lopressor] 25 mg PO QAM 04/19/19 [History] Allergy/AdvReac Type Severity Reaction Status Date / Time azithromycin Allergy See Verified 04/07/18 09:56 [From Zithromax Z-Jarett] Comments clarithromycin [From Biaxin] Allergy Nausea Verified 04/07/18 09:56 Penicillins Allergy See Verified 04/07/18 09:56 Comments tramadol Allergy See Verified 04/07/18 09:56 Comments All Systems PM: A 10-system review of systems was performed and is negative for pertinent findings except as documented above in the HPI. - Constitutional Vitals: Temp Pulse Resp BP Pulse Ox 97.5 F L 91 18 116/55 98 04/19/19 10:18 04/19/19 11:44 04/19/19 11:44 04/19/19 11:44 04/19/19 11:44 Exam: General: NAD, good eye contact, well appearing, obese Head: Atraumatic, normocephalic. Face symmetric Eyes: EOMI, sclerae anicteric ENT: Mucous membranes dry. Pale oral mucosa and normal dentition. Trachea midline. Thoracic: No visible chest wall deformities. Normal breath sounds b/l, no wheezing or crackles Cardio: Normal S1 and S2, irregularly irregular rhythm, tachycardic Abdomen: Soft, nontender, nondistended, obese Extremities: Warm, well perfused. DP pulses 2+ b/l. No clubbing, cyanosis. No edema Skin: Intact. No rashes, bruises, or ulcers Neuro: Awake, fully oriented. Good memory, concentration, attention. Speech fluent. CN II-XII grossly intact. Strength 5/5 in b/l UE and LE Internal Med - H&P Results - Labs CBC & Chem 7: 04/19/19 10:45 04/19/19 10:45 Labs: Short CBC 04/19/19 Range/Units 10:45 WBC 7.6 (4.3-11.1) K/mcL Hgb 14.6 (11.5-15.4) g/dL Hct 44.9 (35.3-44.9) % Plt Count 210 (140-400) K/mcL Neutrophils # 4.8 (1.6-8.9) K/mcL BMP 04/19/19 10:45 Sodium 135 L Potassium 4.7 Chloride 105 Carbon Dioxide 17 L BUN 17 Creatinine 0.88 Glucose 181 H Calcium 9.3 Cardiac Enzymes 04/19/19 Range/Units 10:45 Troponin I < 0.03 (< 0.04) ng/mL - Impressions ITS Impressions Chest X-Ray 04/19/19 10:29 IMPRESSION: Stable chest without acute cardiopulmonary process. D/ / Garrett Comsb MD / Garrett Combs MD Interpreting Provider: Garrett Combs MD - Summary of Assessment and Plan Summary of Assessment and Plan: Sania Beltran is a 68 F w hx A-Fib on AC, HTN, DM2, BELEN, obesity, fibromyalgia, who p/w racing heart and palpitations, ECG/tele showing A-Fib rate up to 110s, concerning for A-Fib RVR. A-Fib RVR: AC on Eliquis. Pt reports home monitor showing HR range 40-230, however this could be artifact given difficulty reading irregular rhythm but could also be sick sinus syndrome. No CP and trop wnl. - tele - cardio consult, rec'd monitoring and no med changes just yet - would likely benefit from referral to EP, will monitor as above per Cardio and determine if appropriate for inpatient but likely will be outpatient HTN: controlled, home meds cardizem and lopressor as above DM2: home metformin 1k bid BELEN: cpap qhs Morbid obesity: BMI 44 PPx: eliquis Tele: yes Activity: ambulate FEN: cardiac ADA,no MIVF Lines: PIV Consults: Cardio Code: Full Dispo: obs for a-fib rvr and cardio eval, anticipate 1-2 days, will be homegoing
[2019-04-19] MEDS ORDERED: Ondansetron 4 MG/2 ML VIAL IVP PRN (13:51)
[2019-04-19] MEDS ORDERED: Acetaminophen 325 MG TABLET PO PRN (13:51)
[2019-04-19] MEDS: *HR* Metformin 500 MG TABLET PO SCH (16:57)
[2019-04-19] MEDS: Apixaban 5 MG TABLET PO SCH (21:55)
[2019-04-19] MEDS: Aspirin Enteric Coated 81 MG Tablet PO SCH (23:36)
[2019-04-19] MEDS ORDERED: *HR* Metoprolol 5 MG/5 ML VIAL IVP ONE (23:58)
[2019-04-20] MEDS ORDERED: Ringers Solution, Lactated 1,000 ML ONE (01:11)
[2019-04-20] MEDS: Ringers Solution, Lactated 1,000 ML IVC SCH ×2 (01:14→13:38)
[2019-04-20 04:07] LABS: Hematocrit 43.3 % (35.3-44.9); Mean Corpuscular HGB Conc 32.3 g/dL (31.6-35.5); Mean Corpuscular Hemoglobin 29.7 pg (28.0-33.3); Mean Corpuscular Volume 91.7 fL (83.0-100.0); Mean Platelet Volume 11.8 fL (9.4-12.4); Platelet Count 214 K/mcL (140-400); Red Blood Count 4.72 M/mcL (3.82-4.97); Red Cell Distribution Width 13.4 % (11.5-14.5); White Blood Count 10.9 K/mcL (4.3-11.1)
[2019-04-20 04:29] LABS: BUN/Creatinine Ratio 22 (6-26); Blood Urea Nitrogen 22 mg/dL (8-23); Carbon Dioxide 21 mEq/L (23-29); Chloride 105 mEq/L (98-107); Glucose 182 mg/dL (70-105); Magnesium 1.8 mg/dL (1.6-2.6); Osmolality,Calculated 290 (280-300); Potassium 3.9 mEq/L (3.5-5.1); Sodium 136 mEq/L (136-145); eGFR For African Americans > 60 (> 60); eGFR For Non-African Americans 56 (> 60)
[2019-04-20 04:30] LABS: Troponin I < 0.03 ng/mL (< 0.04)
--- NOTE | 2019-04-20 07:40 | Event Note ---
Date of Encounter: 04/19/19 Time of Encounter: 23:55 Alerted by patient's nurse ISRAEL Rollins that patient had been in A. fib since admission with heart rate 108 to 190s when she came on shift. Cardiology where patient and recommended no medication changes at this time. Nurse reported patient was feeling palpitations and feeling dizzy. BP 119/72 at the time. Nurse reported heart rate bouncing from 90s to 180s. No order for telemetry currently. Not nurse instructed to order telemetry and placed on patient immediately. Rapid response called on patient 2 minutes later. Went to see patient immediately was resting in bed heart rate was now in the 80s to 90s. Drs. Tapia and Yadira present. Episode appeared transient in nature. Bed rest ordered. Patient instructed to rise slowly and not get out of bed on her own. Grandson present during this time. Went to see patient shortly afterwards and she reported feeling better. Patient had received ordered Meclizine for her dizziness. Nurse instructed to continue monitoring this pt. very closely and alert me immediately of any adverse changes. A.M. Hospitalist and Cardiology deysi sweeney see this pt. first thing in the a.m. d/t this episode overnight to determine plan for medication changes/initiation.
--- NOTE | 2019-04-20 08:57 | Internal Med Progress Note ---
Hospitalist Progress Note - Encounter Date of Encounter: 04/20/19 Time of Encounter: 09:00 - Subjective Interval History: No acute events overnight - Exam Vitals: Temp Pulse Resp BP Pulse Ox 97.9 F 78 18 120/62 97 04/20/19 08:03 04/20/19 08:03 04/20/19 08:03 04/20/19 08:03 04/20/19 08:03 Exam: General: NAD, good eye contact, well appearing, obese Head: Atraumatic, normocephalic. Face symmetric Eyes: EOMI, sclerae anicteric ENT: Mucous membranes dry. Pale oral mucosa and normal dentition. Trachea midline. Thoracic: No visible chest wall deformities. Normal breath sounds b/l, no wheezing or crackles Cardio: Normal S1 and S2, irregularly irregular rhythm, tachycardic Abdomen: Soft, nontender, nondistended, obese Extremities: Warm, well perfused. DP pulses 2+ b/l. No clubbing, cyanosis. No edema Skin: Intact. No rashes, bruises, or ulcers Neuro: Awake, fully oriented. Good memory, concentration, attention. Speech fluent. CN II-XII grossly intact. Strength 5/5 in b/l UE and LE - Assessment and Plan (1) Atrial fibrillation with rapid ventricular response Current Visit: Yes Status: Acute Assessment and Plan: Currently rate controlled on cardizem and on eliquis for anticoagulation Cardiology following and plan for EP consult/ anti arrhythmic therapy (2) HTN (hypertension) Current Visit: Yes Status: Chronic Assessment and Plan: Controlled. Continue home meds (3) Diabetes mellitus type 2 in obese Current Visit: Yes Status: Chronic Assessment and Plan: On subcu insulin and monitor fingersticks (4) Morbid obesity Current Visit: Yes Status: Acute Assessment and Plan: Diet and exercise (5) DVT prophylaxis Current Visit: No Status: Acute Assessment and Plan: Continue eliquis - Time Spent with Patient Total time spent is greater than 50% in coordination of care (as documented) at patient's floor/unit and/or counseling patient: Internal Medicine: Result - Labs CBC & Chem 7: 04/20/19 03:42 04/20/19 03:42 Labs: Short CBC 04/19/19 04/20/19 Range/Units 10:45 03:42 WBC 7.6 10.9 (4.3-11.1) K/mcL Hgb 14.6 14.0 (11.5-15.4) g/dL Hct 44.9 43.3 (35.3-44.9) % Plt Count 210 214 (140-400) K/mcL Neutrophils # 4.8 (1.6-8.9) K/mcL BMP 04/19/19 04/20/19 10:45 03:42 Sodium 135 L 136 Potassium 4.7 3.9 Chloride 105 105 Carbon Dioxide 17 L 21 L BUN 17 22 Creatinine 0.88 0.98 Glucose 181 H 182 H Calcium 9.3 9.0 Cardiac Enzymes 04/19/19 04/20/19 Range/Units 10:45 03:42 Troponin I < 0.03 < 0.03 (< 0.04) ng/mL - Impressions Impressions Chest X-Ray 04/19/19 10:29 IMPRESSION: Stable chest without acute cardiopulmonary process. D/ / Garrett Combs MD / Garrett Combs MD Interpreting Provider: Garrett Combs MD Head CT 04/20/19 01:39 IMPRESSION: No acute intracranial abnormality. D/ / China Burrell MD / China Burrell MD Interpreting Provider: China Burrell MD Consult Discharge Plan - Plan Referrals: Karla Mercer MD [Primary Care Provider] - (2) HTN (hypertension) Qualifiers: Hypertension type: essential hypertension Qualified Code(s): I10 - Essential (primary) hypertension
[2019-04-20] MEDS ORDERED: Aspirin Enteric Coated 81 MG Tablet PO SCH (09:00)
[2019-04-20] MEDS: Diltiazem CD (24hr) 120 MG CAPSULE PO SCH (09:01)
[2019-04-20] MEDS: Apixaban 5 MG TABLET PO SCH ×2 (09:01→20:48)
[2019-04-20] MEDS: *HR* Metformin 500 MG TABLET PO SCH (09:01)
--- NOTE | 2019-04-20 10:01 | Cardiology Consult Note ---
Date of Encounter: 04/20/19 Time of Encounter: 09:30 Assessment and Plan (1) Atrial fibrillation Current Visit: Yes Status: Acute 1. Previously known hx of PAF sees Dr. Pena outpatient on cardizem, eliquis; missed eliquis dose this Tuesday. 2. Metoprolol stopped last outpatient visit r/t low HR 50s. Concern for continued PAF with bouts of RVR this admission, current bout has increased in length from previous bouts of a-fib with 24/hr telemetry ave. hr 105. Currently, a-fib on telemetry with hr 100. 3. Discussed and reviewed with Dr. Pena. Recommends antiarrhythmics therapy with consult to EP, possible JALEN/cardioversion Tuesday if clinically warranted. Would need JALEN since missed 2 doses of Eliquis. 4. TSH, mag. stable; troponins negative x 2. Will order EKG for baseline prior to EP consult. 5. Will add consult to EP. Discussed and reviewed risks and benefits of current plan with the patient and she agrees with current plan. Qualifiers: Atrial fibrillation type: paroxysmal Qualified Code(s): I48.0 - Paroxysmal atrial fibrillation Discussion w patient/family: The assessment and plan as outlined above was discussed with the patient and/or family members who expressed understanding and agreement. All questions were answered. Thank you for involving us in the care of your patient. Please call with any questions. History of Present Illness Consult date: 04/20/19 Consult reason: palpitations Chief complaint: palpitations History of present illness: Ms. Beltran is a 68 year-old female with PMH of A-Fib, HTN, DM2, BELEN, obesity, known to cardiology (Sees Dr. Pena). Presents with palpitations and racing heart rate, mild lightheadedness. Denies any chest pain, N/V, diaphoresis, abd pain, SOB, or edema. Compliant with her home meds; takes metoprolol, Eliquis, ASA, cardizem; missed 2 doses of eliquis night and tuesday morning. Denies alleviating/aggravating factors. Past Med Surg Social Fam HX - Past Medical History Source: patient, old records reviewed Medical history: atrial fibrillation, COPD, diabetes, fibromyalgia, hypertension Additional medical history: palpitations. hard of hearing. Psychiatric history: no psych history - Past Surgical History Surgical History: cholecystectomy, hysterectomy Additional surgical history: bilat knee scopes. tonsil biopsy 2 weeks ago toda y- preliminary negative. - Social History Smoking Status: Never smoker Smokeless Tobacco Status: No Alcohol use: none Drug use: none - Family History Mother Family Member Ethnicity: Non- Living Status: Hx Family Cardiac Disorders: Yes ([place]) Hx Family Cancer: Yes (Renal) Hx Family Endocrine Disorder: Yes (DM) Father Family Member Ethnicity: Non- Living Status: Hx Family Cardiac Disorders: Yes ([place], CAD) Hx Family Endocrine Disorder: Yes (DM) Brother Family Member Ethnicity: Non- Living Status: Hx Family Endocrine Disorder: Yes (DM) Sister Family Member Ethnicity: Non- Living Status: Hx Family Cardiac Disorders: Yes ([place]) Hx Family Cancer: Yes (Lung) Hx Family Endocrine Disorder: Yes (DM) Medications and Allergies Aspirin [Adult Aspirin] 81 mg PO DAILY 04/03/18 [History] Cranberry 500 mg PO QAM PRN 04/03/18 [History] Metformin HCl 1,000 mg PO BID 04/03/18 [History] Apixaban [Eliquis] 5 mg PO BID #60 tablet 04/04/18 [Rx] Diltiazem CD (24hr) [Cardizem CD] 120 mg PO DAILY #30 cap.er.24h 04/04/18 [Rx] Ibuprofen [Ibu] 400 mg PO Q6H PRN 04/19/19 [History] Meclizine [Antivert] 12.5 mg PO TID PRN 04/19/19 [History] Metoprolol [Lopressor] 25 mg PO QAM 04/19/19 [History] Allergy/AdvReac Type Severity Reaction Status Date / Time azithromycin Allergy See Verified 04/07/18 09:56 [From Zithromax Z-Jarett] Comments clarithromycin [From Biaxin] Allergy Nausea Verified 04/07/18 09:56 Penicillins Allergy See Verified 04/07/18 09:56 Comments tramadol Allergy See Verified 04/07/18 09:56 Comments All Systems Review: The remainder of the systems were reviewed and are negative - Cardiovascular Cardiovascular: as per HPI Physical Examination Vital Signs, Last 4 Hours Temp Pulse Resp BP Pulse Ox 04/20/19 08:03 97.9 F 78 18 120/62 97 General: Conversant, No Apparent Distress HEENT: Atraumatic, Normocephaly, Mucus Membranes Moist Neck: No JVD, Normal carotid pulses Cardiac: No Murmur, Other (irregularly irregular) Lungs: Normal Breath Sounds, No Wheeze, Rales, Rhonchi Neuro: Alert and responsive, No focal deficits noted Abdomen: Soft, Non-Tender Skin: No rashes noted on visualized skin Musculoskeletal: No Chest Wall Tenderness Extremities: No Clubbing, No Cyanosis, No Edema, Normal Pulses Results 04/20/19 03:42 04/20/19 03:42 Lab Results Laboratory Tests 04/19/19 04/20/19 04/20/19 10:45 03:42 03:42 Hgb 14.0 Hct 43.3 Plt Count 214 Sodium 136 Potassium 3.9 BUN 22 Creatinine 0.98 Est GFR (Non-Af Amer) 56 L Calcium 9.0 Magnesium 1.8 TSH 3.964 Laboratory Tests 04/19/19 04/20/19 10:45 03:42 Troponin I < 0.03 < 0.[address] 04/20/19 01:39 IMPRESSION: No acute intracranial abnormality. D/ / China Burrell MD / China Burrell MD Interpreting Provider: China Burrell MD Active Medications Acetaminophen (Tylenol) 650 mg PO Q6HR PRN PRN Reason: Mild Pain/Fever Stop: 10/19/19 13:52 Apixaban (Eliquis) 5 mg PO BID [facility]; Protocol Stop: 10/19/19 21:01 Last Admin: 04/20/19 09:01 Dose: 5 mg Documented by: Aspirin (Aspirin Ec) 81 mg PO HS [facility] Stop: 10/19/19 23:01 Last Admin: 04/19/19 23:36 Dose: 81 mg Documented by: Diltiazem HCl (Cardizem Cd) 120 mg PO DAILY [facility] Stop: 10/20/19 09:01 Last Admin: 04/20/19 09:01 Dose: 120 mg Documented by: Lactated Ringer's (Lactated Ringers) 1,000 mls @ 75 mls/hr IVC .[id number] ALAYNA Stop: 10/20/19 01:16 Last Admin: 04/20/19 01:14 Dose: 75 mls/hr Documented by: Meclizine HCl (Antivert) 12.5 mg PO TID PRN PRN Reason: DIZZINESS Stop: 10/19/19 13:38 Last Admin: 04/20/19 01:18 Dose: 12.5 mg Documented by: Metformin HCl (Glucophage) 1,000 mg PO BIDWM [facility]; Protocol Stop: 10/19/19 17:01 Last Admin: 04/20/19 09:01 Dose: 1,000 mg Documented by: Ondansetron HCl (Zofran) 4 mg IVP Q8HR PRN PRN Reason: Nausea And Vomiting Stop: 10/19/19 13:52 Consult Discharge Plan - Plan Referrals: Karla Mercer MD [Primary Care Provider] - HAS-BLED Score - Score Medication usage predisposing to bleeding: Antiplatelet agents, NSAIDs, Anticoagulants Score: 1
[2019-04-20] MEDS ORDERED: D5% in Water 1,000 ML IVC PRN (12:28)
[2019-04-20] MEDS ORDERED: *HR* Dextrose 50 % in Water (Syg) 50 ML SYRINGE IVP PRN (12:28)
[2019-04-20] MEDS ORDERED: Dextrose Gel 15 GM/37.5 ML TUBE PO PRN ×2 (12:28)
--- NOTE | 2019-04-20 12:33 | Electrophysiology Consult Note ---
Date of Encounter: 04/20/19 Time of Encounter: 12:30 Assessment and Plan (1) Atrial fibrillation Current Visit: Yes Status: Acute Per EP: Previously known hx of PAF sees Dr. Pena outpatient on cardizem, eliquis, metoprolol stopped last outpatient visit r/t low HR 50s. Concern for continued PAF with bouts of RVR this admission, 24/hr telemetry ave. hr 105. Currently, a-fib on telemetry with hr 100. Echo 01/2018: Impressions: LVEF 60-65%. Moderate left ventricular diastolic dysfunction. Normal right ventricular structure and function. Mild mitral regurgitation. Mild tricuspid regurgitation. Mild pulmonic regurgitation. No pulmonary hypertension by TR gradient. Left Ventricular Wall Motion: Rest Echo Findings All wall segments showed normal motion. ST pending. TSH, mag. stable; troponins negative x 2. Has BELEN on CPAP. Will discuss and review with Dr. Rebolledo possible antiarrhythmic initiation. Qualifiers: Atrial fibrillation type: paroxysmal Qualified Code(s): I48.0 - Paroxysmal atrial fibrillation Discussion w patient/family: The assessment and plan as outlined above was discussed with the patient and/or family members who expressed understanding and agreement. All questions were answered. Thank you for involving us in the care of your patient. Please call with any questions. History of Present Illness Consult date: 04/20/19 Requesting physician: Christopher Pena Consult reason: Evaluation for antiarrhythmic therapy Chief complaint: Lightheadedness, palpitations History of present illness: Previous records reviewed: "Ms. Beltran is a 68 year-old female with PMH of A-Fib, HTN, DM2, BELEN, obesity, known to cardiology (Sees Dr. Pena). Presents with palpitations and racing heart rate, mild lightheadedness. Denies any chest pain, N/V, diaphoresis, abd pain, SOB, or edema. Compliant with her home meds; takes metoprolol, Eliquis, ASA, cardizem. Denies alleviating/aggravating factors". Indicates missed 2 doses of anticoagulation this past week. Denies any new concerns or complaints. Seen with family at bedside. Past Med Surg Social Fam HX - Past Medical History Attestation: Yes The following information was validated with the patient. Source: patient, old records reviewed, obtained from family Medical history: atrial fibrillation, COPD, diabetes, fibromyalgia, hypertension Additional medical history: palpitations. hard of hearing. Psychiatric history: no psych history - Past Surgical History Surgical History: cholecystectomy, hysterectomy Additional surgical history: bilat knee scopes. tonsil biopsy 2 weeks ago today- preliminary negative. - Social History Smoking Status: Never smoker Smokeless Tobacco Status: No Alcohol use: none Drug use: none - Family History Mother Family Member Ethnicity: Non- Living Status: Hx Family Cardiac Disorders: Yes ([place]) Hx Family Cancer: Yes (Renal) Hx Family Endocrine Disorder: Yes (DM) Father Family Member Ethnicity: Non- Living Status: Hx Family Cardiac Disorders: Yes ([place], CAD) Hx Family Endocrine Disorder: Yes (DM) Brother Family Member Ethnicity: Non- Living Status: Hx Family Endocrine Disorder: Yes (DM) Sister Family Member Ethnicity: Non- Living Status: Hx Family Cardiac Disorders: Yes ([place]) Hx Family Cancer: Yes (Lung) Hx Family Endocrine Disorder: Yes (DM) Medications and Allergies Aspirin [Adult Aspirin] 81 mg PO DAILY 04/03/18 [History] Cranberry 500 mg PO QAM PRN 04/03/18 [History] Metformin HCl 1,000 mg PO BID 04/03/18 [History] Apixaban [Eliquis] 5 mg PO BID #60 tablet 04/04/18 [Rx] Diltiazem CD (24hr) [Cardizem CD] 120 mg PO DAILY #30 cap.er.24h 04/04/18 [Rx] Ibuprofen [Ibu] 400 mg PO Q6H PRN 04/19/19 [History] Meclizine [Antivert] 12.5 mg PO TID PRN 04/19/19 [History] Metoprolol [Lopressor] 25 mg PO QAM 04/19/19 [History] Allergy/AdvReac Type Severity Reaction Status Date / Time azithromycin Allergy See Verified 04/07/18 09:56 [From Zithromax Z-Jarett] Comments clarithromycin [From Biaxin] Allergy Nausea Verified 04/07/18 09:56 Penicillins Allergy See Verified 04/07/18 09:56 Comments tramadol Allergy See Verified 04/07/18 09:56 Comments All Systems Review: The remainder of the systems were reviewed and are negative - Cardiovascular Cardiovascular: as per HPI, lightheadedness, palpitations Physical Examination Vital Signs, Last 4 Hours Temp Pulse Resp BP Pulse Ox 04/20/19 11:46 98.1 F 87 20 143/80 95 General: Conversant, No Apparent Distress HEENT: Atraumatic, Normocephaly, Mucus Membranes Moist Neck: No JVD, Normal carotid pulses Cardiac: Normal S1 and S2, No Murmur, Other (Irregularly irregular) Lungs: Normal Breath Sounds, No Wheeze, Rales, Rhonchi Neuro: Alert and responsive, No focal deficits noted Abdomen: Soft, Non-Tender Skin: No rashes noted on visualized skin Musculoskeletal: No Chest Wall Tenderness Extremities: No Clubbing, No Cyanosis, No Edema, Normal Pulses Results 04/20/19 03:42 04/20/19 03:42 Lab Results 04/20/19 04/20/19 03:42 03:42 WBC 10.9 Hgb 14.0 Hct 43.3 Plt Count 214 Sodium 136 Potassium 3.9 Chloride 105 Carbon Dioxide 21 L BUN 22 Creatinine 0.98 Glucose 182 H Calcium 9.0 Magnesium 1.8 Troponin I < 0.03 - Imaging and Cardiology Echo: report reviewed Consult Discharge Plan - Plan Referrals: Karla Mercer MD [Primary Care Provider] -
[2019-04-20 13:37] LABS: Estimated Average Glucose 171 mg/dl
--- NOTE | 2019-04-20 15:30 | Event Note ---
Date of Encounter: 04/20/19 Time of Encounter: 15:30 - Cardiology Event Note Discussed and reviewed with Dr. Lefty Winchester, assuming stress test negative for ischemia, recs to initiate Rythmol 150 mg by mouth every 8 hours. If patient were to warrant DC cardioversion, would need JALEN due to missed doses of antic oagulation this past week.
[2019-04-20] MEDS: Insulin LISPRO 300 UNITS/3 ML VIAL SQ SCH (17:10)
[2019-04-20] MEDS: Aspirin Enteric Coated 81 MG Tablet PO SCH (20:48)
--- NOTE | 2019-04-20 20:55 | Electrocardiograph Report ---
[address] [place], [place] [address] Test Date: 2019-04-20 Pat Name: Sania Beltran Department: 112 Room: [facility] Gender: F Chuck Tender: KEL : 1950 Requested By: Salvatore Snyder Order Number: [id number] Reading MD: Marcelino Adams Measurements Intervals [place] Rate: 92 P: [place]: 0 QRS: -25 QRSD: 89 T: 11 QT: 352 QTc: 402 Interpretive Statements ATRIAL FIBRILLATION Electronically Signed On 04-20-2019 20:53:49 EDT by Marcelino Adams
[2019-04-21] MEDS: Ringers Solution, Lactated 1,000 ML IVC SCH (02:44)
[2019-04-21] MEDS ORDERED: Regadenoson 0.4 MG/5 ML SYRINGE IVP ONE (06:05)
[2019-04-21 08:12] LABS: Basophils # 0.1 K/mcL (0.0-0.2); Basophils % 0.6 %; Eosinophils # 0.4 K/mcL (0.0-0.6); Eosinophils % 4.8 %; Hematocrit 42.9 % (35.3-44.9); Hemoglobin 14.1 g/dL (11.5-15.4); Immature Granulocytes % 0.9 % (0-4); Lymphocytes # 2.1 K/mcL (0.6-4.6); Lymphocytes % 25.8 %; Mean Corpuscular HGB Conc 32.9 g/dL (31.6-35.5); Mean Corpuscular Hemoglobin 30.1 pg (28.0-33.3); Mean Corpuscular Volume 91.7 fL (83.0-100.0); Mean Platelet Volume 11.6 fL (9.4-12.4); Monocytes # 0.8 K/mcL (0.0-1.3); Monocytes % 9.8 %; Neutrophils # 4.6 K/mcL (1.6-8.9); Platelet Count 197 K/mcL (140-400); Red Blood Count 4.68 M/mcL (3.82-4.97); Red Cell Distribution Width 13.7 % (11.5-14.5); Segmented Neutrophils % 58.1 %
[2019-04-21 08:30] LABS: BUN/Creatinine Ratio 27 (6-26); Blood Urea Nitrogen 20 mg/dL (8-23); Calcium 8.9 mg/dL (8.6-10.3); Carbon Dioxide 22 mEq/L (23-29); Chloride 105 mEq/L (98-107); Glucose 204 mg/dL (70-105); Magnesium 1.8 mg/dL (1.6-2.6); Osmolality,Calculated 292 (280-300); Phosphorous 3.5 mg/dL (2.7-4.5); Sodium 137 mEq/L (136-145); eGFR For African Americans > 60 (> 60); eGFR For Non-African Americans > 60 (> 60)
[2019-04-21] MEDS: Insulin LISPRO 300 UNITS/3 ML VIAL SQ SCH ×3 (08:30→17:03)
[2019-04-21] MEDS: Diltiazem CD (24hr) 120 MG CAPSULE PO SCH (08:32)
[2019-04-21] MEDS: Apixaban 5 MG TABLET PO SCH ×2 (08:32→20:36)
--- NOTE | 2019-04-21 09:17 | Event Note ---
Date of Encounter: 04/21/19 Time of Encounter: 09:15 - Cardiology Event Note Patient is pending stress test today (2 day study, will finish tomorrow). If stress test is negative plan for initiation of rhythmol. Patient is currently SR and HR controlled. Of note, patient has missed doses of eliquis and if DCCV is warranted, would need JALEN. Will continue to monitor.
--- NOTE | 2019-04-21 11:27 | Internal Med Progress Note ---
Hospitalist Progress Note - Encounter Date of Encounter: 04/21/19 Time of Encounter: 11:26 - Subjective Interval History: No acute events overnight - Exam Vitals: Temp Pulse Resp BP Pulse Ox 97.6 F 75 16 127/76 96 04/21/19 06:58 04/21/19 06:58 04/21/19 06:58 04/21/19 06:58 04/21/19 03:00 Exam: General: NAD, good eye contact, well appearing, obese Head: Atraumatic, normocephalic. Face symmetric Eyes: EOMI, sclerae anicteric ENT: Mucous membranes dry. Pale oral mucosa and normal dentition. Trachea midline. Thoracic: No visible chest wall deformities. Normal breath sounds b/l, no wheezing or crackles Cardio: Normal S1 and S2, irregularly irregular rhythm, tachycardic Abdomen: Soft, nontender, nondistended, obese Extremities: Warm, well perfused. DP pulses 2+ b/l. No clubbing, cyanosis. No edema Skin: Intact. No rashes, bruises, or ulcers Neuro: Awake, fully oriented. Good memory, concentration, attention. Speech fluent. CN II-XII grossly intact. Strength 5/5 in b/l UE and LE - Assessment and Plan (1) Atrial fibrillation with rapid ventricular response Current Visit: Yes Status: Acute Assessment and Plan: Currently rate controlled on cardizem and on eliquis for anticoagulation Cardiology following and consulted EP. 2 day stress test planned to r/o ischemia, 1st part completed today Plan for initiation of rhythmol if stress test is negative. Patient is currently SR and HR controlled. Of note, patient has missed doses of eliquis and if DCCV is warranted, would need JALEN. Will continue to monitor. (2) HTN (hypertension) Current Visit: Yes Status: Chronic Assessment and Plan: Controlled. Continue home meds (3) Diabetes mellitus type 2 in obese Current Visit: Yes Status: Chronic Assessment and Plan: On subcu insulin and monitor fingersticks (4) Morbid obesity Current Visit: Yes Status: Acute Assessment and Plan: Diet and exercise (5) DVT prophylaxis Current Visit: Yes Status: Acute Assessment and Plan: Continue eliquis - Time Spent with Patient Total time spent is greater than 50% in coordination of care (as documented) at patient's floor/unit and/or counseling patient: Internal Medicine: Result - Labs CBC & Chem 7: 04/21/19 07:45 04/21/19 07:45 Labs: Short CBC 04/21/19 Range/Units 07:45 WBC 8.0 (4.3-11.1) K/mcL Hgb 14.1 (11.5-15.4) g/dL Hct 42.9 (35.3-44.9) % Plt Count 197 (140-400) K/mcL Neutrophils # 4.6 (1.6-8.9) K/mcL BMP 04/21/19 07:45 Sodium 137 Potassium 4.0 Chloride 105 Carbon Dioxide 22 L BUN 20 Creatinine 0.73 Glucose 204 H Calcium 8.9 Consult Discharge Plan - Plan Referrals: Karla Mercer MD [Primary Care Provider] - 04/27/19 10:30 am (Please follow up as schedule..) (2) HTN (hypertension) Qualifiers: Hypertension type: essential hypertension Qualified Code(s): I10 - Essential (primary) hypertension
[2019-04-21] MEDS: Aspirin Enteric Coated 81 MG Tablet PO SCH (20:37)
--- NOTE | 2019-04-22 00:13 | Electrocardiograph Report ---
[place] [facility] Test Date: 2019-04-19 Pat Name: Sania Beltran Department: EXAM15 Room: 2A63 Gender: F Emergency Medical Technician Basic: : 1950 Requested By: Ra Arvizu Order Number: [id number] Reading MD: Mac Ackerman Measurements Intervals [place] Rate: 119 P: [place]: QRS: -64 QRSD: 81 T: -2 QT: 373 QTc: 525 Interpretive Statements Atrial flutter with 2:1 AV block Ventricular premature complex Left anterior fascicular block Borderline repolarization abnormality Prolonged QT interval Electronically Signed On 04-22-2019 0:11:52 EDT by Mac Ackerman
[2019-04-22 05:37] LABS: Basophils # 0.1 K/mcL (0.0-0.2); Basophils % 0.8 %; Eosinophils # 0.4 K/mcL (0.0-0.6); Eosinophils % 5.5 %; Hematocrit 38.7 % (35.3-44.9); Hemoglobin 12.7 g/dL (11.5-15.4); Immature Granulocytes % 0.5 % (0-4); Lymphocytes % 26.2 %; Mean Corpuscular HGB Conc 32.8 g/dL (31.6-35.5); Mean Corpuscular Volume 91.5 fL (83.0-100.0); Mean Platelet Volume 11.4 fL (9.4-12.4); Monocytes # 0.7 K/mcL (0.0-1.3); Monocytes % 9.5 %; Neutrophils # 4.3 K/mcL (1.6-8.9); Platelet Count 175 K/mcL (140-400); Red Blood Count 4.23 M/mcL (3.82-4.97); Red Cell Distribution Width 13.8 % (11.5-14.5); Segmented Neutrophils % 57.5 %; White Blood Count 7.5 K/mcL (4.3-11.1)
[2019-04-22 05:57] LABS: BUN/Creatinine Ratio 24 (6-26); Blood Urea Nitrogen 15 mg/dL (8-23); Carbon Dioxide 24 mEq/L (23-29); Chloride 106 mEq/L (98-107); Glucose 202 mg/dL (70-105); Osmolality,Calculated 293 (280-300); Phosphorous 3.6 mg/dL (2.7-4.5); Potassium 4.2 mEq/L (3.5-5.1); Sodium 138 mEq/L (136-145); eGFR For African Americans > 60 (> 60); eGFR For Non-African Americans > 60 (> 60)
--- NOTE | 2019-04-22 07:55 | Internal Med Progress Note ---
Hospitalist Progress Note - Encounter Date of Encounter: 04/22/19 Time of Encounter: 09:00 - Subjective Interval History: No acute events overnight - Exam Vitals: Temp Pulse Resp BP Pulse Ox 97.6 F 74 16 134/72 97 04/21/19 23:39 04/21/19 23:39 04/21/19 23:39 04/21/19 23:39 04/21/19 23:39 Exam: General: NAD, good eye contact, well appearing, obese Head: Atraumatic, normocephalic. Face symmetric Eyes: EOMI, sclerae anicteric ENT: Mucous membranes dry. Pale oral mucosa and normal dentition. Trachea midline. Thoracic: No visible chest wall deformities. Normal breath sounds b/l, no wheezing or crackles Cardio: Normal S1 and S2, irregularly irregular rhythm, tachycardic Abdomen: Soft, nontender, nondistended, obese Extremities: Warm, well perfused. DP pulses 2+ b/l. No clubbing, cyanosis. No edema Skin: Intact. No rashes, bruises, or ulcers Neuro: Awake, fully oriented. Good memory, concentration, attention. Speech fluent. CN II-XII grossly intact. Strength 5/5 in b/l UE and LE - Assessment and Plan (1) Atrial fibrillation with rapid ventricular response Current Visit: Yes Status: Acute Assessment and Plan: Currently rate controlled on cardizem and on eliquis for anticoagulation Cardiology following and consulted EP. 2 day stress test planned to r/o ischemia, 1st part completed today Plan for initiation of rhythmol if stress test is negative. Patient is currently SR and HR controlled. Of note, patient has missed doses of eliquis and if DCCV is warranted, would need JALEN. Stress test completed and negative for ischemia. Further recs per cardio (2) HTN (hypertension) Current Visit: Yes Status: Chronic Assessment and Plan: Controlled. Continue home meds (3) Diabetes mellitus type 2 in obese Current Visit: Yes Status: Chronic Assessment and Plan: On subcu insulin and monitor fingersticks (4) Morbid obesity Current Visit: Yes Status: Acute Assessment and Plan: Diet and exercise (5) DVT prophylaxis Current Visit: Yes Status: Acute Assessment and Plan: Continue eliquis - Time Spent with Patient Total time spent is greater than 50% in coordination of care (as documented) at patient's floor/unit and/or counseling patient: Internal Medicine: Result - Labs CBC & Chem 7: 04/22/19 05:26 04/22/19 05:26 Labs: Short CBC 04/21/19 04/22/19 Range/Units 07:45 05:26 WBC 8.0 7.5 (4.3-11.1) K/mcL Hgb 14.1 12.7 (11.5-15.4) g/dL Hct 42.9 38.7 (35.3-44.9) % Plt Count 197 175 (140-400) K/mcL Neutrophils # 4.6 4.3 (1.6-8.9) K/mcL BMP 04/21/19 04/22/19 07:45 05:26 Sodium 137 138 Potassium 4.0 4.2 Chloride 105 106 Carbon Dioxide 22 L 24 BUN 20 15 Creatinine 0.73 0.62 Glucose 204 H 202 H Calcium 8.9 9.0 Consult Discharge Plan - Plan Referrals: Karla Mercer MD [Primary Care Provider] - 04/27/19 10:30 am (Please follow up as schedule..) (2) HTN (hypertension) Qualifiers: Hypertension type: essential hypertension Qualified Code(s): I10 - Essential (primary) hypertension
[2019-04-22] MEDS: Diltiazem CD (24hr) 120 MG CAPSULE PO SCH (09:04)
[2019-04-22] MEDS: Apixaban 5 MG TABLET PO SCH (09:04)
[2019-04-22] MEDS: Insulin LISPRO 300 UNITS/3 ML VIAL SQ SCH ×2 (09:05→11:40)
[2019-04-22 11:49] VITALS: BP 180/69
--- NOTE | 2019-04-22 13:02 | Discharge Summary ---
Date of Encounter: 04/22/19 Time of Encounter: 09:00 - Discharge Diagnosis (1) Atrial fibrillation with rapid ventricular response Priority: Primary Status: Acute Assessment and Plan: 68 F w hx A-Fib on AC, HTN, DM2, BELEN, obesity, fibromyalgia, who p/w palpitations and racing heart rate. Patient states that this morning she experienced her heart racing and could tell that she was in her A-Fib. Her concern is finding out what caused it to go so fast. States that on her home monitor, the readings bounced around from as fast as 230 down to as slow as 40, with several of them in the 150s. Compliant with her home meds. Denies any chest pain, N/V, diaphoresis, abd pain or bloating, SOB, or edema. She takes metoprolol 25 bid and cardizem 120 daily. In the ED, pt vitals afebrile, HR 90- 110s, RR 18, SBP 120-150s. She was placed on tele. Labs unremarkable except HCO3 17, no anion gap. Case discussed with her pricing associate Dr Pena who rec'd continued tele and no med changes just yet. She was assessed with afib with RVR which was rate controlled by the next day on home cardizem and on eliquis for anticoagulation. Cardiology following and consulted EP. Recommended a 2 day stress test planned to r/o ischemia, and if ne gative would consider antiarrhythmic therapy with rhythmol to control symptoms due to recurrences of her symptoms on cardizem and beta delicia. She had a 2 day stress test done which was negative for ischemia but declined to stay for anti arrhytmic therapy. Will follow up with EP as an outpatient and continue her home regimen of cardizem. She has metoprolol listed on her home meds, but says cardio told her to stop taking it. In any case, she will follow up with cardiology outpatient. 35 minutes was spent discharging this patient (2) HTN (hypertension) Priority: Primary Status: Chronic Qualifiers: Hypertension type: essential hypertension Qualified Code(s): I10 - Es sential (primary) hypertension (3) Diabetes mellitus type 2 in obese Priority: Primary Status: Chronic (4) Morbid obesity Priority: Primary Status: Acute (5) DVT prophylaxis Priority: Primary Status: Acute Hospital course: Ms. Beltran is a 68 year old female - Time Spent with Patient Total time spent providing and/or coordinating discharge services: - Discharge Medications Prescriptions: Continued Metformin HCl 1,000 mg PO BID Aspirin [Adult Aspirin] 81 mg PO DAILY Cranberry 500 mg PO QAM PRN PRN Reason: UTI Apixaban [Eliquis] 5 mg PO BID #60 tablet Diltiazem CD (24hr) [Cardizem CD] 120 mg PO DAILY #30 cap.er.24h Metoprolol [Lopressor] 25 mg PO QAM Meclizine [Antivert] 12.5 mg PO TID PRN PRN Reason: Dizziness Ibuprofen [Ibu] 400 mg PO Q6H PRN PRN Reason: Pain Home Medications: Aspirin [Adult Aspirin] 81 mg PO DAILY 04/03/18 [History] Cranberry 500 mg PO QAM PRN 04/03/18 [History] Metformin HCl 1,000 mg PO BID 04/03/18 [History] Apixaban [Eliquis] 5 mg PO BID #60 tablet 04/04/18 [Rx] Diltiazem CD (24hr) [Cardizem CD] 120 mg PO DAILY #30 cap.er.24h 04/04/18 [Rx] Ibuprofen [Ibu] 400 mg PO Q6H PRN 04/19/19 [History] Meclizine [Antivert] 12.5 mg PO TID PRN 04/19/19 [History] Metoprolol [Lopressor] 25 mg PO QAM 04/19/19 [History] Allergies/Adverse Reactions: Allergy/AdvReac Type Severity Reaction Status Date / Time azithromycin Allergy See Verified 04/07/18 09:56 [From Zithromax Z-Jarett] Comments clarithromycin [From Biaxin] Allergy Nausea Verified 04/07/18 09:56 Penicillins Allergy See Verified 04/07/18 09:56 Comments tramadol Allergy See Verified 04/07/18 09:56 Comments Date of admission: 04/22/19 07:53 Primary care physician: Karla Mercer MD Consults: 04/19/19 12:27 Consult to Cardiology [CONS] Stat Comment: Consulting Provider: Card[facility] [place] Reason for Consult: atrial fibrillation Time Notified: 12:27 Call Completed: Yes 04/20/19 11:40 Consult to Electrophysiology (EP) [CONS] Routine Consulting Provider: Electrophysiology [facility] Reason for Consult: antiarrythmic therapy; sees Dr. Pena for A-fib. Call Completed: Yes - Constitutional Vitals: Temp Pulse Resp BP Pulse Ox 97.7 F 70 16 180/69 97 04/22/19 11:42 04/22/19 11:42 04/22/19 11:42 04/22/19 11:42 04/21/19 23:39 Exam: General: NAD, good eye contact, well appearing, obese Head: Atraumatic, normocephalic. Face symmetric Eyes: EOMI, sclerae anicteric ENT: Mucous membranes dry. Pale oral mucosa and normal dentition. Trachea midline. Thoracic: No visible chest wall deformities. Normal breath sounds b/l, no wheezing or crackles Cardio: Normal S1 and S2, irregularly irregular rhythm, tachycardic Abdomen: Soft, nontender, nondistended, obese Extremities: Warm, well perfused. DP pulses 2+ b/l. No clubbing, cyanosis. No edema Skin: Intact. No rashes, bruises, or ulcers Neuro: Awake, fully oriented. Good memory, concentration, attention. Speech fluent. CN II-XII grossly intact. Strength 5/5 in b/l UE and LE - Patient Status Disposition: Home, Self-Care Condition: Fair - Discharge Instructions Instructions: Atrial Fibrillation (DC) Follow Up With: Karla Mercer MD [Primary Care Provider] - 04/27/19 10:30 am (Please follow up as schedule..)
== END 2019-04-22 14:21 | disposition home or self-care (01) | DRG 309 ==
LOC: EMEROOARM 10:13 → 2ANU 10:13
PROVIDERS: ADMIT Internal Medicine; ATTEND Student in an Organized Health Care Education/Training Program